=== PATIENT | female | born 1950 | race Caucasian/White ===

== ENCOUNTER 2021-06-24 06:15 | Day surgery (SDC) | payer MEDICARE, BC, SELFPAY ==
[2021-06-17 13:06] VITALS: BMI 24.8
--- NOTE | 2021-06-23 14:00 | HO.ANESPROP2 ---
Documented by User: Kaylin Perdue NP 06/23/21 14:01 HPI - Anesthesia Eval Consult details Narrative: 70yo F for Colonoscopy [facility] Past Medical History Medical History (Updated 06/17/21 @ 13:02 by Roxanne Osei RN) Anxiety Urinary incontinence Surgical History Surgical History (Updated 06/17/21 @ 13:02 by Roxanne Osei RN) H/O colonoscopy Hx of eye surgery Hx of sinus surgery Social History Social History Patient Tobacco Use Status: Tobacco use Unknown Advance Directives: No Advance Directives Information Provided: Yes Advance Directives on File: No Meds Allergies Allergy/AdvReac Type Severity Reaction Status Date / Time grass pollen Allergy Mild Rash Verified 06/17/21 12:39 Penicillins Allergy Mild Rash Verified 06/17/21 12:39 Home Medications Medication Instructions Recorded Confirmed Last Taken Type Calcium + D 1 tab PO DAILY 06/17/21 06/17/21 Unknown History Exam Exam Date and Time: June 23, 2021 1400 Height,Weight and Vital Signs: Height 5 ft 2.5 in Weight 62.596 kg Assessment and Plan Assessment Anesthesia Assessment: Chart Reviewed Documented by User: Luis Alberto Clemente MD 06/24/21 09:06 HPI - Anesthesia Eval Consult details Narrative: 70yo F for Colonoscopy h/o vertigo [facility] Past Medical History Medical History (Updated 06/17/21 @ 13:02 by Roxanne Osei RN) Anxiety Urinary incontinence Family History Family history of problems with anesthesia: No Surgical History Surgical History (Updated 06/17/21 @ 13:02 by Roxanne Osei RN) H/O colonoscopy Hx of eye surgery Hx of sinus surgery History of Problems with Anesthesia: No Social History Social History Patient Tobacco Use Status: Tobacco use Unknown Advance Directives: No Advance Directives Information Provided: Yes Advance Directives on File: No Meds Allergies Allergy/AdvReac Type Severity Reaction Status Date / Time grass pollen Allergy Mild Rash Verified 06/17/21 12:39 Penicillins Allergy Mild Rash Verified 06/17/21 12:39 Home Medications Medication Instructions Recorded Confirmed Last Taken Type Calcium + D 1 tab PO DAILY 06/17/21 06/17/21 Unknown History Exam Airway Mallampati Class: II TM Dist: >3cm Neck ROM: Full Loose/Missing/Broken Teeth: Yes (Crowns , implants ) Heart: rrr Lungs: bl breath sounds Assessment and Plan Assessment Anesthesia Assessment: Anesthesia Plan Discussed Final Anesthetic Review Family History of Problems with Anesthesia: No History of Problems with Anesthesia: No NPO: Yes ASA Class: II Final Preanesthetic Review: Meds/Allgs Chart Reviewed and Anes Risks/Benef Reviewed Patient Risk: Intermediate Procedure Risk: Intermediate Anesthetic Plan Anesthetic Plan: MAC: Disposition: Standard PACU
[2021-06-24 06:41] VITALS: BP 140/76; PULSE 98; RESP 18; TEMP 36.3; O2SAT 98
[2021-06-24] MEDS: Lactated Ringers 1,000 ML 100 ML IVCONT (06:53)
[2021-06-24 08:34] VITALS: BP 92/52; PULSE 76; RESP 16; TEMP 36.9; O2SAT 98
--- NOTE | 2021-06-24 08:34 | PM.OP ---
Brief Operative Note Date of Service: 06/24/21 Pre-op diagnosis: Screening Post-op diagnosis: other (Rectal polyp) Procedure: Colonoscopy to the cecum and TI with bx/removal of polyp Surgeon: Shoaib Villa Anesthesia: MAC Was an Stump Shooter used for this Procedure?: No Estimated blood loss (mL): 2.0 Pathology: other (A. Distal rectal polyp) Condition: stable Disposition: PACU
[2021-06-24 08:49] VITALS: BP 107/62; PULSE 76; RESP 18; TEMP 36.6; O2SAT 99
--- NOTE | 2021-06-24 09:34 | OP_ITS ---
SURGEON: Shoaib Villa MD INDICATIONS: The patient presents for evaluation of colorectal cancer screening and personal history of tubular adenoma of the colon. Full consent has been obtained from her for this, including risks of bleeding and perforation. PREOPERATIVE DIAGNOSIS: Colorectal cancer screening and personal history of tubular adenoma of the colon. POSTOPERATIVE DIAGNOSIS: PROCEDURE PERFORMED: Colonoscopy to the cecum and terminal ileum with biopsy and removal of polyp. ESTIMATED BLOOD LOSS: COMPLICATIONS: ANESTHESIA: Preop medication used, monitored anesthesia care. ASSISTANTS: SPECIMENS: POSTOPERATIVE DIAGNOSES: Colorectal cancer screening and personal history of tubular adenoma of the colon, rectal polyp, diverticulosis, and internal and external hemorrhoids. DESCRIPTION OF PROCEDURE: The patient was placed in the left lateral decubitus position the digital rectal exam revealed some external hemorrhoidal tissue. The Olympus video pediatric colonoscope was entered into the rectum and advanced easily to the cecum. Once in the cecum, I did identify normal-appearing cecal pouch with appendiceal orifice and a normal-appearing ileocecal valve. There was transillumination of light deep in the right lower quadrant. The terminal ileum was cannulated and appeared normal. The scope was withdrawn back in the colon. The entire cecum and ileocecal valve appeared normal. The scope was slowly withdrawn assessing all mucosal surfaces carefully. Preparation was excellent. There was a moderate amount of sigmoid diverticulosis. I did not visualize any sign of colitis nor angiodysplasia. The only polyp I visualized was in the very distal rectum in the forward viewing position. This was approximately 4 mm in diameter and was biopsied and completely removed with the cold biopsy forceps. The scope was retroflexed visualizing some internal hemorrhoids as well. The scope was straightened and withdrawn from the patient. She tolerated the procedure well and she returned to recovery area in stable condition. IMPRESSION: 1. Small distal rectal polyp, status post biopsy and removal. 2. Diverticulosis. 3. Internal and external hemorrhoids. PLAN: The results of biopsy will be checked. I would recommend a repeat colonoscopy in 5 years for further screening and surveillance. She will otherwise see me on a p.r.n. basis. MD MIKE Kearney/MARIANA / [phone]
== END 2021-06-24 09:41 | disposition home or self-care (01) ==
PROVIDERS: PCP Registered Nurse; Visit Provider Internal Medicine
PROC: 0DJD8ZZ Inspection of Lower Intestinal Tract, Via Natural or Artificial Opening Endoscopic (ICD-10-PCS; CPT 45378; principal; 2021-06-24 07:30)
DX: Z12.11 Encounter for screening for malignant neoplasm of colon (principal); Z86.010 Personal history of colon polyps; K62.1 Rectal polyp; K57.30 Diverticulosis of large intestine without perforation or abscess without bleeding; K64.8 Other hemorrhoids; K64.4 Residual hemorrhoidal skin tags
CPT/HCPCS: 45380; 88305; J2370

== ENCOUNTER 2023-02-25 08:29 | Outpatient (AMB) | payer MEDICARE, BC, SELFPAY ==
[2023-02-25 08:50] VITALS: BP 152/90; PULSE 112; TEMP 36.7; O2SAT 97; BMI 24.3
--- NOTE | 2023-02-25 08:50 | AM.OFFWIN_ITS ---
Intake Vital Signs 02/25/23 08:50 Height 5 ft 3 in Weight 137 lb 6 oz BMI 24.3 BP 152/90 H Blood Pressure Location Lt brachial Position Sitting Pulse 112 H Pulse Source Pulse Oximeter Temp 98.0 F Temp Source Temporal Artery Scan Pulse Oximetry (%) 97 Oxygen Delivery Method Room Air Intake Visit Reasons: [employer] POST COVID still not better [id number] Intake Note: pt is here today for post covid Patient Tobacco Use Status: Never used Tobacco Allergies grass pollen Allergy (Mild, Verified 02/25/23 09:40) Rash Penicillins Allergy (Mild, Verified 02/25/23 09:40) Rash Medication List - Last Reconciled 02/25/23 by Steven Leger MD [Calcium + D 1 tab PO DAILY] Do you need a note to return to daycare/school/sports/work: No HPI [employer] POST COVID still not better [id number] HPI Details 72-year-old female presents to the [facility] for a sick visit. Patient was diagnosed with COVID a week ago. Continues to feel tired with cough. No fevers or shortness of breath. No nausea or vomiting. [facility] Medical History (Updated 06/17/21 @ 13:02 by Roxanne Osei RN) Urinary incontinence Anxiety Surgical History (Updated 06/17/21 @ 13:02 by Roxanne Osei RN) Hx of eye surgery Hx of sinus surgery H/O colonoscopy Social History Patient Tobacco Use Status: Never used Tobacco Physical Exam Vital Signs: Last Vital Signs Temp 98.0 F 02/25/23 08:50 Pulse 112 H 02/25/23 08:50 BP 152/90 H 02/25/23 08:50 Pulse Ox 97 02/25/23 08:50 Oxygen Delivery Method Room Air 02/25/23 08:50 BMI result Body Mass Index 24.3 Const General: cooperative and healthy appearing Nutritional Appearance: well nourished Orientation/consciousness: patient oriented x3 Limitations: no limitations HEENT Head: Yes normal to inspection Eyes General: appearance normal, both eyes and all related structures Neck Neck: Yes normal visual inspection Chest Chest palpation & inspection: normal palpation of entire chest wall Resp Effort & Inspection: normal respiratory effort Neuro General: patient oriented x3 Assessment & Plan Assessment & Plan (1) Acute bronchitis: Code(s): J20.9 - Acute bronchitis, unspecified Plan Azithromycin added to the regimen. Chest x-ray images were reviewed by me. No infiltrate seen. Orders: Orders XR chest 2V Today R05.9 - Cough, unspecified Coding Level of Care Code New Pt Level 4 (11709) Diagnoses Acute bronchitis J20.9
== END 2023-02-25 09:46 | disposition home or self-care (01) ==
PROVIDERS: PCP Registered Nurse; Visit Provider Internal Medicine
DX: J20.9 Acute bronchitis, unspecified (principal)
CPT/HCPCS: 99204

== ENCOUNTER 2023-02-25 09:24 | Outpatient (REF) | payer MEDICARE, BC, SELFPAY ==
--- NOTE | ~2023-02-25 | XR_ITS ---
EXAMINATION: XR CHEST CLINICAL INFORMATION: Cough COMPARISON: None available. TECHNIQUE: 2 views of the chest were obtained. FINDINGS: Heart and mediastinum within normal limits. Lungs are hyper aerated mild biapical pleural thickening. No consolidations, failure or effusions. Bony structures are intact. XR/XR chest 2V IMPRESSION: No acute cardiopulmonary disease.
== END 2023-02-25 09:25 | disposition home or self-care (01) ==
LOC: HO.HMGCX 09:24
PROVIDERS: PCP Registered Nurse; Visit Provider Internal Medicine
DX: R05.9 Cough, unspecified (principal)
CPT/HCPCS: 71046

== ENCOUNTER 2023-06-10 13:17 | Outpatient (AMB) | payer MEDICARE, BC, SELFPAY ==
[2023-06-10 13:17] VITALS: BP 140/78; PULSE 102; TEMP 36.2; O2SAT 99; BMI 24.8
--- NOTE | 2023-06-10 13:17 | MHC.OFFWIV ---
Intake Vital Signs 06/10/23 13:17 Height 5 ft 3 in Weight 140 lb BMI 24.8 BP 140/78 H Blood Pressure Location Lt brachial Position Sitting Pulse 102 H Pulse Source Pulse Oximeter Temp 97.2 F Temp Source Temporal Artery Scan Pulse Oximetry (%) 99 Oxygen Delivery Method Room Air Intake Visit Reasons: EP rash on body Intake Note: pt is here today for rash on body started 2 weeks ago Patient Tobacco Use Status: Never used Tobacco Allergies grass pollen Allergy (Mild, Verified 06/10/23 13:22) Rash Penicillins Allergy (Mild, Verified 06/10/23 13:22) Rash Do you need a note to return to daycare/school/sports/work: No HPI HPI Comments History of Present Illness Details This is a 72-year-old female presenting to the office complaining of intermittent rash/pruritus for the past several weeks. She states she gets an occasional red rash all over her body on her chest, back, neck, trunk, and arms. She states that this rash is pruritic when it appears. She denies any exposures to new creams, lotions, detergents, soaps, or foods. She states that her is currently going through cancer treatment and she believes her rash may be related to stress/anxiety. She denies any chest tightness, wheezing, throat swelling, or trouble swallowing. She denies any fevers or chills. [facility] Medical History (Updated 06/17/21 @ 13:02 by Roxanne Osei RN) Urinary incontinence Anxiety Surgical History (Updated 06/17/21 @ 13:02 by Roxanne Osei RN) Hx of eye surgery Hx of sinus surgery H/O colonoscopy Social History Patient Tobacco Use Status: Never used Tobacco Review of Systems Const All systems reviewed & are unremarkable except as noted in HPI and below Reports no additional complaints Eyes Reports no additional complaints ENT Reports no additional complaints Card Reports no additional complaints Resp Reports no additional complaints GI Reports no additional complaints Reports no additional complaints Musc Reports no additional complaints Skin/Breast Reports system reviewed and no additional complaints, except as documented Neuro Reports no additional complaints Psych Reports no additional complaints Endo Reports no additional complaints Amari/Lymph Reports no additional complaints Aller/Immun Reports no additional complaints Physical Exam Const Other: Vital signs reviewed. Constitutional: Non-toxic appearing. No acute distress. Well-developed and well-nourished. HEENT: Normocephalic and atraumatic. Skin: Warm and dry. No rashes or lesions noted. Neck: Full and painless range of motion. No cervical lymphadenopathy. Cardio: Regular rate and rhythm. No murmurs, gallops, or rubs. No lower extremity edema. No JVD. Pulmonary: No respiratory distress. No accessory muscle usage. Gastrointestinal: Soft, nontender, and nondistended in all 4 quadrants. Musculoskeletal: Normal range of motion in joints throughout the body. No deformity or other signs of injury. Neuro: Alert and oriented x4. Cranial nerves 2-12 grossly intact. No focal deficits appreciated. Psych: Normal mood and affect. Assessment & Plan Assessment & Plan (1) Dermatitis: Code(s): L30.9 - Dermatitis, unspecified Plan: This is a 72-year-old female who presented to the walk-in clinic complaining of intermittent pruritic rash all over her body for the past several weeks. On physical examination, the patient has no rash on her chest, neck, back, trunk, or upper extremities. I explained to the patient that it is difficult for me to diagnose this rash since it is not currently present at this time. Patient was reassured that her symptoms do not sound like shingles as the rash is migratory and crosses the midline. Patient could possibly have irritant/contact dermatitis with unknown trigger versus cholinergic urticaria in the setting of increased stress/anxiety. I sent a prescription for triamcinolone cream 4 times daily as needed for rash as well as p.o. hydroxyzine 50 mg 3 times daily as needed for itching, which will also help with anxiety. Patient was extremely appreciative and felt reassured after our visit. She was advised to follow-up here or proceed to the emergency room if she were to develop any persistent or worsening symptoms or if she were to develop any signs of anaphylaxis including shortness of breath, wheezing, swelling, or trouble swallowing. Patient verbalized her understanding and she is in agreement with the plan. Medications: New hydroxyzine HCl 50 mg PO TID PRN 21 tabs 0RF itching triamcinolone acetonide 0.1% 1 appl topical QID PRN 30 grams 0RF rash Coding Level of Care Code Est Pt Level 3 (34773) Diagnoses Dermatitis L30.9
== END 2023-06-10 16:09 | disposition home or self-care (01) ==
PROVIDERS: PCP Registered Nurse; Visit Provider Physician Assistant Medical
DX: L30.9 Dermatitis, unspecified (principal)
CPT/HCPCS: 99213

== ENCOUNTER 2024-09-21 14:32 | Outpatient (AMB) | payer MEDICARE, BC, SELFPAY ==
--- OUTSIDE RECORDS SUMMARY | 2024-09-21 14:34 | XMS_ITS | Patient Health Record ---
Author Organization [facility] Address [address] [place] [address] Care Team Providers Care Rod Piler Name Role Phone Edita Garza Primary Care Provider Shoaib Escalera Unavailable [phone] Allergies Allergen (clinical drug ingredient) Drug/Non Drug Allergy documented on EMR Reaction Allergy Type Onset Date Status Penicillin Unknown Drug Allergy Active Reason For Referral No Information Medications Medication SIG (Take, Route, Frequency, Duration) Notes Start Date End Date Status Calcium + D Active Immunizations Vaccine Route Administration Date Status Comme nts Flu vaccine no Preserv 3 and > Unknown 03/24/2015 Admin istered Influenza Unknown 01/07/2021 Administered Problems Problem Type SNOMED Code ICD Code Onset Dates Problem Status W/U Status Risk Notes Problem [id number] Encounter for screening for malignant neoplasm of colon (Z12.11) Active confirmed Problem 103463256 History of adenomatous polyp of colon (Z86.010) Active confirmed Problem Screening for malignant neoplasm of rectum (194567835) Encounter for screening for malignant neoplasm of rectum (Z12.12) Active confirmed Problem 81891478 Preprocedural examination (Z01.818) Active confirmed Problem Diverticulosis of colon (806620266) Diverticulosis of colon (K57.30) Active confirmed Plan Of Treatment Pending Test Test Name Order Date Pathology 06/24/2021 Future Test Test Name Order Date COLONOSCOPY 11/18/2015 COLONOSCOPY 05/19/2021 Insurance Providers Payer Name Payer Address Payer Phone Subscriber Number Group Number Insured Name Patient Relationship to Insured Coverage Start Date Coverage End Date MEDICARE OF [place] [address] [place] [id number] TERESO SEGUNDO Self - patient is the insured [facility] [address] [place], [place] [id number] TERESO SEGUNDO Self - patient is the insured Medical (General) History Medical History History ICD Code Screening colonoscopy in 200 0 with removal of a tubular adenoma and a 2cm tubulovillous adenoma--she had negative followup colonoscopies in 2002 and 2005, and a colonoscopy in September of 2010 with removal of a small tubular adenoma, and the finding of a small nonbleeding cecal angiodysplasia, moderate sigmoid diverticulosis, and internal hemorrhoids Denies RI,DM,CVA,Lung disease,renal dise ase Anxiety Urinary incontinence Colonoscopy in 01/2016 with removal of sm all tubular adenomas Surgical History Surgery Date(Month/Year) Sinus surgery Left eye retina and cataract [phone]
[2024-09-21 15:00] VITALS: BP 112/70; PULSE 83; O2SAT 98
--- NOTE | 2024-09-21 15:00 | AM.OFFWIN_ITS ---
Intake Vital Signs 09/21/24 15:00 Weight 139 lb BP 112/70 Blood Pressure Location Rt brachial Position Sitting Pulse 83 Pulse Source Pulse Oximeter Pulse Oximetry (%) 98 Oxygen Delivery Method Room Air Intake Visit Reasons: EP tick bite on leg Intake Note: Patient here for tick bite on right leg that she noticed this morning. Patient Tobacco Use Status: Never used Tobacco Allergies grass pollen Allergy (Mild, Verified 09/21/24 15:03) Rash Penicillins Allergy (Mild, Verified 09/21/24 15:03) Rash Do you need a note to return to daycare/school/sports/work: No HPI HPI Comments History of Present Illness Details History of Present Illness - The patient is a 73-year-old female pr esenting with concerns related to a tick bite. - Discovery of the tick occurred in the morning bath routine today, revealing small size and broken skin. Tick was not engorged. - Previous gardening activities yesterda y could have been the exposure point; protective clothing was worn. - No systemic symptoms like fever, joint pain, or erythema migrans rash were present. Physical Exam General: Cooperative, healthy appearing, comfortable, no acute distress and well developed Orientation: Patient oriented x3 Limitations: No limitations Head: Normal to inspection Ears: Hearing grossly normal bilaterally Nose: Normal External nose present Face and sinus: Normal facial exam Eyes: Appearance normal, both eyes and all related structures Neck: Normal visual inspection and Yes full ROM Respiratory: Normal respiratory effort and able to speak in complete sentences. Skin: No rashes or lesions noted, 0.5cm area of erythrma on inner right thigh, no warmth or drainage Neuro: Patient oriented x3 Extremities: Normal to inspection PFSH Medical History (Updated 09/21/24 @ 15:16 by Sandra Gordon PA-C) Urinary incontinence Anxiety Surgical History (Updated 06/17/21 @ 13:02 by Roxanne Osei RN) Hx of eye surgery Hx of sinus surgery H/O colonoscopy Social History Patient Tobacco Use Status: Never used Tobacco Review of Systems Const All systems reviewed & are unremarkable except as noted in HPI and below Physical Exam Vital Signs: Last Vital Signs Pulse 83 09/21/24 15:00 BP 112/70 09/21/24 15:00 Pulse Ox 98 09/21/24 15:00 Oxygen Delivery Method Room Air 09/21/24 15:00 Assessment & Plan Assessment & Plan (1) Tick bite of right thigh: Code(s): S70.361A - Insect bite (nonvenomous), right thigh, initial encounter; W57.XXXA - Bitten or stung by nonvenomous insect and other nonvenomous arthropods, initial encounter Qualifiers: Encounter type: initial encounter Qualified Code(s): S70.361A - Insect bite (nonvenomous), right thigh, initial encounter; W57.XXXA - Bitten or stung by nonvenomous insect and other nonvenomous arthropods, initial encounter Plan: Plan The patient was evaluated for a tick bite with potential Lyme disease risk. A prophylactic single dose of doxycycline was prescribed to prevent Lyme transmission, given the tick's short attachment time. Instructions were clarified regarding medication intake with food and avoidance of dairy. The patient was advised to observe for any ongoing symptoms and return if symptoms like fever, EM rash, or joint pain develop. Patient was informed and verbally consented to the use of an ambient scribe for clinic note documentation during this visit. Medications: New doxycycline hyclate 200 mg (2 x 100 mg) PO ONCE 2 tabs 0RF tick bite ppx Coding Level of Care Code New Pt Level 3 (18570) Diagnoses Tick bite of right thigh, initial encounter S70.361A; W57.XXXA Encounter type: initial encounter
== END 2024-09-21 15:26 | disposition home or self-care (01) ==
PROVIDERS: PCP Registered Nurse; Visit Provider Physician Assistant
DX: S70.361A Insect bite (nonvenomous), right thigh, initial encounter (principal); W57.XXXA Bitten or stung by nonvenomous insect and other nonvenomous arthropods, initial encounter

== ENCOUNTER → 2024-09-21 14:32 | Outpatient (BNVA) | payer MEDICARE, BC, SELFPAY | PROVIDERS: PCP Registered Nurse; Visit Provider Physician Assistant | DX: S70.361A Insect bite (nonvenomous), right thigh, initial encounter (principal); W57.XXXA Bitten or stung by nonvenomous insect and other nonvenomous arthropods, initial encounter | CPT/HCPCS: 99202 ==

== ENCOUNTER 2025-02-27 12:56 | Outpatient (AMB) | payer MEDICARE, BC, SELFPAY ==
--- NOTE | 2025-02-27 13:21 | MHC.OFFWIV ---
Intake Vital Signs 02/27/25 13:34 Height 5 ft 2.5 in Weight 136 lb 6 oz BMI 24.5 BP 132/66 Blood Pressure Location Lt brachial Position Sitting Pulse 110 H Pulse Source Pulse Oximeter Temp 98.4 F Temp Source Oral Pulse Oximetry (%) 98 Oxygen Delivery Method Room Air Intake Visit Reasons: EP-sore throat, ears issues, -7886 Intake Note: Patient presents with sore throat, left ear pressure, head/sinus congestion, chills x2 days Patient Tobacco Use Status: Never used Tobacco Allergies grass pollen Allergy (Mild, Verified 02/27/25 13:23) Rash Penicillins Allergy (Mild, Verified 02/27/25 13:23) Rash Do you need a note to return to daycare/school/sports/work: No HPI HPI Comments History of Present Illness Details History - The patient is a 74-year-old female presenting with a sore throat and associated symptoms. - The sore throat began two days ago and was the initial symptom. - The patient reports ear discomfort and nasal congestion, contributing to the sensation of fullness in the head. - Coughing is present, attributed to throat irritation and mucus production. - No fever, headache, vomiting, or diarrhea reported. - A rapid strep test was conducted and returned negative. - The patient received a flu vaccine in August 2024. - She has no sick contacts. - She denies fever, chills, CP, SOB, abd pain, or n/v/d. Physical Exam General: Cooperative, healthy appearing, comfortable and no acute distress Orientation/consciousness: Patient oriented x3 Limitations: No limitations Head: Normal to inspection Ears: Hearing grossly normal bilaterally, external ears normal and TM's normal bilaterally. Nose: Normal external nose present, normal nares present, and no nasal discharge present. Face and sinus: Sinuses nontender to palpation. Mouth: Normal oral and palatal mucosa present and moist mucous membranes noted. Uvula is midline. Pharynx is erythematous with no exudates. Throat: Tonsils normal. Uvula is midline. Posterior oropharynx with erythema and no exudates. Eyes: Appearance normal, both eyes and all related structures Neck: Normal visual inspection, full ROM. No lymphadenopathy noted. Respiratory: Clear to auscultation bilaterally. Normal respiratory effort, able to speak in complete sentences. No respiratory distress, not tachypneic, no tripod positioning and no use of accessory muscles. Cardiovascular: Regular rate and rhythm. Normal S1 and S2 Skin: No rashes or lesions noted Patient was informed and verbally consented to the use of an ambient scribe for clinic note documentation during this visit [facility] Medical History (Updated 09/21/24 @ 15:16 by Sandra Gordon PA-C) Urinary incontinence Anxiety Surgical History (Updated 06/17/21 @ 13:02 by Roxanne Osei RN) Hx of eye surgery Hx of sinus surgery H/O colonoscopy Social History Patient Tobacco Use Status: Never used Tobacco Review of Systems Const All systems reviewed & are unremarkable except as noted in HPI and below Physical Exam Vital Signs: Last Vital Signs Temp 98.4 F 02/27/25 13:34 Pulse 110 H 02/27/25 13:34 BP 132/66 02/27/25 13:34 Pulse Ox 98 02/27/25 13:34 Oxygen Delivery Method Room Air 02/27/25 13:34 BMI result Body Mass Index 24.5 Assessment & Plan Assessment & Plan (1) Sore throat: Code(s): J02.9 - Acute pharyngitis, unspecified Plan Most likely strep vs viral illness vs covid vs flu vs RSV rapid strep was negative plan - will order a resp panel - tylenol or motrin as needed - salt water gargles and lots of fluids - diet as tolerated - will call with the results - follow up with PCP Orders: Orders AMB Rapid Strep Screen Today Z13.9 - Encounter for screening, unspecified Resp Pathogen Panel - [facility] Today J06.9 - Acute upper respiratory infection, unspecified Coding Level of Care Code Est Pt Level 3 (65247) Diagnoses Sore throat J02.9
[2025-02-27 13:34] VITALS: BP 132/66; PULSE 110; TEMP 36.9; O2SAT 98; BMI 24.5
== END 2025-02-27 14:11 | disposition home or self-care (01) ==
PROVIDERS: PCP Registered Nurse; Visit Provider Physician Assistant Medical
DX: Z13.9 Encounter for screening, unspecified (principal); J02.9 Acute pharyngitis, unspecified

== ENCOUNTER 2025-02-27 12:56 | Outpatient (REF) | payer MEDICARE, BC, SELFPAY ==
--- OUTSIDE RECORDS SUMMARY | 2025-02-27 22:29 | XMS_ITS | Encounter Summary ---
Author Organization [facility] Address [address] [place] [address] Phone Care Team Providers Care Vocal Music Instructor Name Role Phone Davdi eLzama MD Unavailable [phone] Edita Garza [facility] Primary Care Provider Hair Bowser MD Unavailable [phone] Lm Suarez MD Unavailable [phone] Garrett Funez MD Primary Care Provider [phone] Unknown, Unknown Primary Care Provider Hair Summers MD Unavailable [phone] Glenis Gloria [facility] Primary Care Provid er David Alford DO Unavailable Nilda Oh MD Unavailable Encounter Details Date Type Department Care Team (Latest Contact Info) Description 03/05/2021 Transcribe Orders Virtual Department [address] [place] [address] Lm Suarez MD [address] [place], [place] [phone] [email or web address] Cyst of kidney, acquired (Primary Dx) Social History Tobacco Use Types Packs/Day Years Used Date Smoking Tobacco: Never Smokeless Tobacco: Never Alcohol Use Standard Drinks/Week Comments Yes 0 (1 standard drink = 0.6 oz pur e alcohol) once every few months Comments No Sex and Gender Information Value Date Recorded Sex Assigned at Female 06/03/2019 9:50 AM EST Legal Sex Female 10:46 AM EDT Gender Identity Female 06/03/2019 9:50 AM EST Sexual Orientation Straight 06/03/2019 9: 50 AM EST documented as of this encounter Plan of Treatment Upcoming Encounters Date Type Department Care Team (Late st Contact Info) Description 06/03/2025 8:30 AM EST Office Visit [facility] [address] [place] [address] [place] [address] David Alford DO [address] [place] [address] 08/16/2025 10:30 AM EDT Office Visit [facility] [address] [place] [address] [place] [address] Glenis Gloria, PHILL [address] [facility], 2nd [place] [address] [email or web address] documented as of this encounter Results * US Kidneys (04/14/2021 8:41 AM EST) Anatomical Region Laterality Modality Abdomen, Kidney Ultrasound 04/14/2021 8:45 AM EST Impressions 04/14/2021 9:39 AM EST Chronic bilateral renal parapelvic cysts without significant interval change. No acute findings. Narrative 04/14/2021 9:39 AM EST COMPARISON: 02/11/2020. RENAL ULTRASOUND FINDINGS: Right Kidney: measures 9 x 4 cm. No hydronephrosis, masses or calculi. Chronic simple appearing parapelvic cysts-largest 1.2 cm midpole. Cortical echogenicity and thickness are normal. No perinephric fluid collections. Left Kidney: measures 10 x 4 cm. No hydronephrosis, masses or calculi. Chronic simple appearing parapelvic cysts-largest 1.8 cm midpole. Cortical echogenicity and thickness are normal. No perinephric fluid collections. Procedure Note Jordy Enriquez MD - 04/14/2021 COMPARISON: 02/11/2020. RENAL ULTRASOUND FINDINGS: Right Kidney: measures 9 x 4 cm. No hydronephrosis, masses or calculi.Chronic simple appearing parapelvic cysts-largest 1.2 cm midpole. Corticalechogenicity and thickness are normal. No perinephric fluidcollections. Left Kidney: measures 10 x 4 cm. No hydronephrosis, masses or calculi.Chronic simple appearing parapelvic cysts-largest 1.8 cm midpole. Corticalechogenicity and thickness are normal. No perinephric fluidcollections. IMPRESSION: Chronic bilateral renal parapelvic cysts without significant intervalchange. No acute findings. us Lm Suarez MD [facility] RENAL Final Result documented in this encounter Visit Diagnoses Diagnosis Cyst of kidney, acquired- Primary Acquired cyst of kidney Cyst of kidney, acquired Acquired cyst of kidney documented in this encounter Additional Health Concerns Assessment Noted Time PHQ-2 Depression Total Score: 0 12/03/19 9:13 AM EDT documented as of this encounter Care Teams Vocal Music Instructor Relationship Specialty Start Date End Date Edita Garza CNP [address] [place] [address] PCP - General Internal Medicine 06/03/19 10/27/22 Garrett Funez MD [address] [place] [address] PCP - General Internal Medicine 10/28/22 04/04/23 Unknown, Miquel, PCP - General 04/05/23 08/30/23 Glenis Gloria CNP [address] [place] [address], 2nd [place] [address] PCP - General Family Medicine 08/31/23 David Lezama MD [address] [place] [address] Ophthalmology 04/17/19 Hair Bowser MD [address] [place] [address] [email or web address] Insurance Assigned Provider 08/15/19 04/04/23 Lm Suarez MD [address] [place] [address] [email or web address] Urology 03/04/20 Hair Bowser MD [address] [place] [address] [email or web address] Insurance Assigned Provider 08/15/19 05/14/23 David Alford DO [address] [place] [address] Energy And Conservation Technician Endocrinology 08/15/24 Nilda Oh MD [address] [place] [address] [email or web address] Obstetrics and Gynecology 08/15/24 documented as of this encounter Additional Source Comments The information contained in this document represents components of the legal health record. It is not the complete legal health record.[facility]
--- OUTSIDE RECORDS SUMMARY | 2025-02-27 22:30 | XMS_ITS | Encounter Summary ---
Author Organization [facility] Address [address] [place] [address] Phone Care Team Providers Care Pre Billing Clinician Name Role Phone David Lezama MD Unavailable Lm Suarez MD Unavailable [phone] Glenis Gloria [facility] Primary Care Provid er David Alford DO Unavailable Nilda Oh MD Unavailable Encounter Details Date Type Department Care Team (Late st Contact Info) Description 01/08/2025 Procedure Pass [facility], Ct Scan - [address] [address] Social History Tobacco Use Types Packs/Day Years Used Date Smoking Tobacco: Never Smokeless Tobacco: Never Alcohol Use Standard Drinks/Week Comments Not Currently 0 (1 standard drink = 0.6 oz pur e alcohol) 1-2 drinks, monthly or less Education Answer Date Recorded Are you interested in more education? Not on michelle e 09/03/2022 Are you concerned about learning? Not on file 09/03/2022 No 09/03/2022 No 09/03/2022 Food Answer Date Recorded Within the past 6 months we worried whether our food would run out before we got money to buy more. Never True 01/08/2025 Within the past 6 months the food we bought just didn't last and we didn't have enough money to get more. Never True 09/02/202 5 Residential Stability Answer Date Recor ded What is your housing situation today? I have [place] 01/08/2025 How many times have you move d in the past 12 months? Zero (I did not move) 01/08/2025 Paying for Meds Answer Date Recorded Do you have trouble paying for medicines? No 01/08/2025 Paying Utility Bills Answer Date Record ed Do you have trouble paying your heating or elect ricity bill? No 01/08/2025 Transportation Answer Date Recorded Has the lack of transportati on kept you from medical appointments or from getting medications? No 01/08/2025 Digital Access Answer Date Recorded No 01/08/2025 Yes 01/08/2025 Do you have reliable internet access at home? Ye s 01/08/2025 Do you have a device (e.g., phone, tablet, computer) with a working camera? Yes 01/08/2025 Intimate Partner Violence Answer Date R ecorded Are you denied basic needs s uch as food, clothing, or medical care? No 01/08/2025 In the past 12 months have y ou been in a relationship with a person who hurts, threatens, or tries to control you? No 01/08/2025 Are you denied basic needs s uch as food, clothing, or medical care? No 01/08/2025 In the past 12 months have y ou been in a relationship with a person who hurts, threatens, or tries to control you? No 01/08/2025 Comments No Sex and Gender Information Value Date Recorded Sex Assigned at Female 06/03/2019 9:50 AM EST Legal Sex Female 10:46 AM EDT Gender Identity Female 06/03/2019 9:50 AM EST Sexual Orientation Straight 06/03/2019 9: 50 AM EST documented as of this encounter Functional Status * Calculated C-SSRS Risk Score (Lifetime/Recent) Answer Date of Assessment Author No Risk Indicated 01/08/2025 1:04 PM SYDNEET Flaquita Galeana RN * [place] Suicide Severity Rating Scale (Screener/Recent Self-Report) Question Answer Date of Assessment Author 1. Wish to be (Past 1 Month) No 01/08/2025 1:04 PM Patrick Mccarthy RN 2. Non-Specific Active Suicidal Thoughts (Past 1 Month) No 01/08/2025 1:04 PM EDT Patrick Law RN 6. Suicidal Behavior (Lifetime) No 01/08/2025 1:04 PM EDT Patrick Law RN documented as of this encounter Plan of Treatment Upcoming Encounters Date Type Department Care Team (Late st Contact Info) Description 06/03/2025 8:30 AM EST Office Visit [facility] [address] [place] [address] David Alford DO [address] [place] [address] 08/16/2025 10:30 AM EDT [facility] [address] [place] [address] [place] [address] Glenis Gloria CNP [address] [place] [address] documented as of this encounter Visit Diagnoses Not on filedocumented in this encounter Additional Health Concerns Assessment Noted Time PHQ-2 Depression Total Score: 0 08/16/19 25 8:55 AM EDT documented as of this encounter Care Teams Pre Billing Clinician Relationship Specialty Start Date End Date Glenis Gloria CNP [address] [place] [address] PCP - General Family Medicine 08/31/23 David Lezama MD [address] [place] [address] Ophthalmology 04/17/19 Lm Suarez MD [address] [place] [address], [address] [place] [address] Urology 03/04/20 David Alford DO [address] [place] [address] [email or web address] Oil Treater Endocrinology 08/15/24 Nilda Oh MD [address] [place] [address], [address] [place] [address] [email or web address] Obstetrics and Gynecology 08/15/24 documented as of this encounter Additional Source Comments The information contained in this document represents components of the legal health record. It is not the complete legal health record.[facility]
--- OUTSIDE RECORDS SUMMARY | 2025-02-27 22:30 | XMS_ITS | Encounter Summary ---
Author Organization [facility] Address [address] [place] [address] Phone Care Team Providers Care Mixed Livestock Farm Worker Name Role Phone Hair Bowser MD Unavailable Edita Garza [facility] Primary Care Provider David Lezama MD Unavailable Edita Garza [facility] Primary Care Provider Hair Bowser MD Unavailable [phone] Lm Suarez MD Unavailable [phone] Garrett Funez MD Primary Care Provider Unknown, Unknown Primary Care Provider Hair Summers MD Unavailable Glenis Gloria [facility] Primary Care Provid er David Alford DO Unavailable Nilda Oh MD Unavailable Encounter Details Date Type Department Care Team (Latest Contact Info) Description 10/03/2018 Transcribe Orders Virtual Department [address] [place] [address] Tayler Ramos [place] [address] [phone] [email or web address] Cyst of kidney, acquired (Primary Dx) Social History Tobacco Use Types Packs/Day Years Used Date Smoking Tobacco: Never Smokeless Tobacco: Never Alcohol Use Standard Drinks/Week Comments Yes 1 (1 standard drink = 0.6 oz pur e alcohol) once per month Comments Unknown Sex and Gender Information Value Date Recorded [...] AM EST Office Visit [facility] [address] [place] [address] [place] [address] David Alford DO [address] [place] [address] 08/16/2025 10:30 AM EDT Office Visit [facility] [address] [place] [address] [place] [address] Glenis Gloria, [facility] [address] [facility], 2nd [place] [address] [email or web address] documented as of this encounter Results * US Kidneys (12/25/2018 10:05 AM EDT) Anatomical Region Laterality Modality Abdomen, Kidney Ultrasound 12/25/2018 4:28 PM EDT Impressions 12/25/2018 4:31 PM EDT No renal calculi. Normal renal size and cortical echogenicity. Several LEFT renal parapelvic cysts, unchanged compared with the prior study. POS - [id number] Narrative 12/25/2018 4:31 PM EDT EXAM: US KIDNEYS HISTORY: CYST OF KIDNEY ACQUIRED TECHNIQUE: Grayscale and color Doppler ultrasound imaging of the kidneys. COMPARISON: 12/07/2017. FINDINGS: RIGHT KIDNEY: Normal renal size. Measures 9.2 x 3.3 cm. Cortical echogenicity is normal. Normal cortical thickness. There is no hydronephrosis. There are no shadowing calculi. LEFT KIDNEY: Normal renal size. Measures 9.9 x 4.2 cm. Cortical echogenicity is normal. Normal cortical thickness. There is no hydronephrosis. There are no shadowing calculi. Several simple parapelvic cysts, the largest measuring 1.7 cm. Findings are unchanged compared with the previous ultrasound. Procedure Note Tamanna Colmenares MD - 12/25/2018 EXAM: US KIDNEYS HISTORY: CYST OF KIDNEY ACQUIRED TECHNIQUE: Grayscale and color Doppler ultrasound imaging of thekidneys. COMPARISON: 12/07/2017. FINDINGS: RIGHT KIDNEY: Normal renal size. Measures 9.2 x 3.3 cm. Corticalechogenicity is normal. Normal cortical thickness. There is nohydronephrosis. There are no shadowing calculi. LEFT KIDNEY: Normal renal size. Measures 9.9 x 4.2 cm. Corticalechogenicity is normal. Normal cortical thickness. There is nohydronephrosis. There are no shadowing calculi. Several simple parapelviccysts, the largest measuring 1.7 cm. Findings are unchanged compared withthe previous ultrasound. IMPRESSION: No renal calculi. Normal renal size and cortical echogenicity. Several LEFT renal parapelvic cysts, unchanged compared with the priorstudy. POS - [id number] Tayler STRINGER IMG US RENAL Final Resu lt documented in this encounter Visit Diagnoses Diagnosis Cyst of kidney, acquired- Primary Acquired cyst of kidney Cyst of kidney, acquired Acquired cyst of kidney documented in this encounter Care Teams Mixed Livestock Farm Worker Relationship Specialty Start Date End Date Edita Garza CNP [address] [place] [address] [email or web address] PCP - General Internal Medicine 09/29/18 06/02/19 Edita Garza CNP [address] [place] [address] [email or web address] PCP - General Internal Medicine 06/03/19 10/27/22 Garrett Funez MD [address] [place] [address] [email or web address] PCP - General Internal Medicine 10/28/22 04/04/23 Unknown, Miquel, PCP - General 04/05/23 08/30/23 Glenis Gloria, PHILL [address] [place] [address], [address] [place] [address] [email or web address] PCP - General Family Medicine 08/31/23 Hair Bowser MD [address] [place] [address] Insurance Assigned Provider 08/06/17 11/18/18 David Lezama MD [address] [place] [address] Ophthalmology 04/17/19 Hair Bowser MD [address] [place] [phone] [email or web address] Insurance Assigned Provider 08/15/19 04/04/23 Lm Suarez MD [address] [place] [phone] [email or web address] Urology 03/04/20 Hair Bowser MD [address] [place] [address] [email or web address] Insurance Assigned Provider 08/15/19 05/14/23 David Alford DO [address] [place] [address] [email or web address] Ammonia Technician Endocrinology 08/15/24 Nilda Oh MD [address] [place] [address] [address] [place] [address] [email or web address] Obstetrics and Gynecology 08/15/24 documented as of this encounter Additional Source Comments The information contained in this document represents components of the legal health record. It is not the complete legal health record.[facility]
--- OUTSIDE RECORDS SUMMARY | 2025-02-27 22:30 | XMS_ITS | Clinical Summary ---
Author Organization [facility] Address [address] [place] [address] Phone Care Team Providers Care Changer Fixer Name Role Phone David Lezama MD Unavailable [phone] Lm Suarez MD Unavailable [phone] Glenis Gloria [employer] Primary Care Provid er David Alford DO Unavailable Nilda Oh MD Unavailable Allergies Active Allergy Reactions Criticality Noted Date Comments Penicillins Rash Low 03/15/2017 Medications calcium carbonate-vitamin D3 1,000 mg(2,500 mg)-800 unit Tab Take by mouth. Active estradioL (YUVAFEM) [address] 1 tablet (10 mcg total) vaginally 2 (two) times a week. 24 tablet 2 5 Active alendronate (FOSAMAX) 70 MG tabletIndications :Age-related osteoporosis without current pathological fracture Take 1 tablet (70 mg total) by mouth every 7 days. Take in the morning with a full glass of water, on an empty stomach, and do not take anything else by mouth or lie down for the next 30 min. 12 tablet 3 5 Active cholecalciferol (VITAMIN D3) 2,000 unit capsuleIndication s:Vitamin D deficiency Take 1 capsule (2,000 Units total) by mouth daily. 90 capsule 3 5 Active Active Problems Problem Noted Date Diagnosed Date Impaired fasting glucose 10/08/2024 Assessment & Plan (10/08/2024 12:25 PM EDT): Her fasting blood sugar level is 110, which is above the normal range for non-diabetics. She was advised to combine sugar intake with proteins and fats to prevent rapid spikes in blood sugar levels. An A1c test will be added to her next lab work to monitor her average blood sugar levels. Urge incontinence of urine 08/15/2024 Assessment & Plan (10/08/2024 12:25 PM EDT): The urinary urgency is likely due to pelvic floor dysfunction, a common issue among women, particularly post-menopause. Physical therapy was recommended as an effective treatment option. A referral to a physical therapist in [place] will be initiated. If physical therapy does not yield satisfactory results, alternative treatments, including medications for overactive bladder, may be considered. Psoriasis of scalp 08/15/2024 Assessment & Plan (10/08/2024 12:25 PM EDT): She has been using a prescribed lotion and shampoo intermittently, which has made a difference. She was advised to continue using these treatments as needed and to follow up with her taker out in 01/2025. Post-menopausal atrophic vaginitis 09/14/2023 Overview (05/23/2024): Most prominent sx is urinary urgency, resolved in past with use of vaginal estrogen Assessment & Plan (10/08/2024 12:40 PM EDT): Recently resumed estradiol vaginal tablets. - Followed by [facility] (Dr Oh). Assessment & Plan (05/23/2024 8:36 AM EST): Will resume use, start daily x 2 weeks then twice weekly Assessment & Plan (09/14/2023 11:17 PM EDT): The patient was informed that UVafem can be used at her discretion as long as it is beneficial. Adenomatous polyp of colon 08/31/2023 Assessment & Plan (10/08/2024 12:35 PM EDT): Colonoscopy in 01/2016 with removal of small tubular adenomas. Last colonoscopy done 06/24/2021, pathology results not available. ?3 or 5 year recall. She believes she is due for repeat next year. - Followed by GI through [facility] (Dr Butler). Assessment & Plan (08/31/2023 10:29 AM EDT): Last colonoscopy done in 2021. Always has polyps, most recent pathology not available. Followed by GI through [facility] (Dr Butler). Diverticulosis of colon 08/31/2023 Assessment & Plan (09/14/2023 11:18 PM EDT): The patient was counseled to adhere to a high-fiber diet. Assessment & Plan (09/14/2023 11:18 PM EDT): >>ASSESSMENT AND PLAN FOR DIVERTICULOSIS WRITTEN ON 03/04/2020 6:14 AM BY ELINA CHAMBERS, THERAPEUTIC RADIOLOGIST Stable, no recent diverticulitis. Hemorrhoids 08/31/2023 Assessment & Plan (09/14/2023 11:18 PM EDT): The patient was informed that [id number] medications, including hydrocortisone 1 percent combined with lidocaine and phenylephrine, are available in all combinations, depending on the symptoms she is experiencing. A prescription for hydrocortisone 2.5 percent was issued. Generalized anxiety disorder 02/03/2022 Assessment & Plan (10/08/2024 12:26 PM EDT): Stable general anxiety, in good control with good self-care: healthy eating, adequate sleep, avoiding negative psychoactive substances [like alcohol, caffeine] and regular exercise. Emphasized the importance of cognitive skills and encouraged pt to connect with a therapist. Assessment & Plan (09/14/2023 11:21 PM EDT): We discussed various medication options for her anxiety. Offered rx hydroxyzine to manage her itching, sleep, and anxiety, risks/benefits/side effects reviewed. Has used previously w/ poison shereen rash, declines for now. Assessment & Plan (07/19/2022 7:08 AM EDT): Discussed management options could try buspar. She is also open to seeing a counselor. Will consider and f/u. Urinary frequency 11/30/2021 Overview (11/30/2021): Long-term symptom. Has been evaluated by urology with normal CT scan of abdomen and pelvis, urine cytology negative x3 Also expresses lack of feeling of urge to void as well Assessment & Plan (01/26/2022 5:17 PM EDT): Bladder diary indicates total daily volume ranging from 150 to 1000 mL over 3 days, presuming all voids were recorded. Urine analyses indicate always more concentrated urine Spent some time discussing that she would benefit from higher fluid intake and discussed some strategies, which as squeezing lemon or robinson into some water refrigerating it etc. Recommend continuing the vaginal estrogen because it has seemed to help with the sensation she has been having Assessment & Plan (11/30/2021 1:23 PM EDT): Discussed possible overactive bladder although that does not fit with having no urge to void during the day. May respond to vaginal estrogen treatment, prescription sent for the cream Men daily voiding diary explained that in detail and asked that she also notes about whether not she had the urge to void, and also record what she is drinking Thickened endometrium 03/27/2020 Age-related osteoporosis mell gardner current pathological fracture 10/06/2018 Assessment & Plan (10/08/2024 12:25 PM EDT): She is currently taking Fosamax and reports no adverse effects. She was advised to continue taking Fosamax with a full glass of water and to remain upright afterward to avoid esophagitis. A bone density test is scheduled for 10/2024 to monitor the effectiveness of the treatment. Assessment & Plan (07/04/2024 3:24 PM EST): She remains vitamin D deficient despite taking vitamin D 1600 units daily my advice would be to increase the vitamin D by another 2000 units of D3. In the meantime she is getting adequate calcium and I did not find any other secondary causes of osteoporosis. She does weight training. She will benefit from an antiresorptive medication. She has decided to use alendronate 70 mg weekly. She was advised to take this medication fasting with water. Wait 30 minutes before eating and she must remain upright either sitting standing or walking for the next 30 minutes after taking this medication. She should repeat lab work fasting in the morning 2 weeks prior to the follow-up visit with me. Also she is due for repeat DXA scan on 10/20/[address] and she should try to get this done. Assessment & Plan (03/28/2024 10:13 AM EST): The patient was diagnosed with osteoporosis in 2019. Her risk factors for osteoporosis include age, menopause, family history of hip fracture, and vitamin D deficiency. She has lost 0.5 inches in height. She has not had any fractures. Currently takes calcium and vitamin D supplements. She has not been placed on antiresorptive medications. Repeat DXA scan showed that she had an improvement in the spine but decreased bone mineral density in the forearm. At this point I will do biochemical workup for further evaluation of secondary causes of osteoporosis. The patient informs me that she really does not like to take medications. On her last visit with her primary care physician she was informed that there are choices for management. However she felt that it would be best to speak with the materials tech. I will give the patient information on antiresorptive medications so that she can read but I am not going to prescribe any medications at this point. She should have biochemical workup first to find if there is another etiology that we need to address first. The antiresorptive medications are the bisphosphonates and rank ligand antagonists. The bisphosphonates come in oral form and IV form. The oral form is alendronate, this is a 70 mg tablet that is taken once a week with water on an empty stomach. The patient must not eat for 30 minutes and remain upright in a sitting or standing position. This medication may be associated with reflux. This medication can be used up to 5 years and at that point we reevaluate. If the bone density has not improved we can switch to another medication or continue the same medications for another 5 years. If there is improvement in bone mineral density then we can do a drug holiday. The IV form is called zoledronic acid/ Reclast. This is administered in the hospital as a yearly infusion. This medication can be used up to 3 years. Again this medication also can be repeated for another 3 years if there is insufficient bone mineral density or the medication could be switch for something else. If good bone improvement then we can consider a drug holiday. It is associated with flulike symptoms such as muscle aches, headaches, etc. The other antiresorptive medication is rank ligand antagonist such as Prolia/ denosumab. This medication is administered subcutaneously in the office every 6 months. With this medication you have to have adequate calcium intake otherwise hypocalcemia may develop. Furthermore the medication must not be missed there is a 2-week window in which the patient must have the injection. If the patient misses the injection then there will be rapid decrease in bone mineral density. Furthermore if the patient wants to stop the medication that we will have to take alendronate for period of 1 year. If the patient does not take any medications at all after stopping Prolia then they will return to their original bone mineral density within 12 months. All of these medications are associated with atypical femur fracture and jaw necrosis after prolonged use. Prolonged use is considered to be approximately 5 years. The risk of atypical femur fracture approximately 0.8% and for jaw necrosis is approximately 0.1%. This can translate to up to 5 people out of 10,000. There are other medications such as anabolic hormones. These include Forteo and Tymlos which are basically the same medication but different brands. These medications are injected by the patient on a daily basis at nighttime right before going to bed. This medication is good for period of 2 years. It is administered in the evening because it could be associated with dizziness. The last medication is Evenity which is administered in the office on a monthly basis for period of 1 year. This medication cannot be used if the patient had a myocardial infarction within the last 6 months. The anabolic hormones are very expensive and normally for a patient who has not use any of these medications they usually get one of the antiresorptive medications such as alendronate, zoledronic acid or Prolia. Assessment & Plan (09/14/2023 11:19 PM EDT): The patient was advised to engage in weight-bearing exercises such as walking, resistance training, weightlifting, and body weight training. She was also advised to ensure adequate calcium and vitamin D intake. The patient was educated about Fosamax, injections, or IV infusions. A referral to endocrinology was made. 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 Assessment & Plan (09/14/2023 11:22 PM EDT): Continues on calcium supplement with vitamin D. Resolved Problems Problem Noted Date Diagnosed Date Resolved Date Rash of face 07/19/2022 10/08/2024 Assessment & Plan (07/19/2022 7:07 AM EDT): Try hydrocortisone to rash, ok to use regular moisturizer as well. Derm if no improvement of rash in 1 week Vulvar itching 11/30/2021 09/14/2023 Overview (11/30/2021): Labia majora, consistent with mild chronic irritation such as eczema Assessment & Plan (01/26/2022 5:18 PM EDT): Improved with topical triamcinolone, recommend considering once weekly use or frequent use of an emollient Poison shereen dermatitis 11/17/20202024 Assessment & Plan (09/14/2023 11:18 PM EDT): The patient was informed that repeat exposure can exacerbate her reaction over time. Assessment & Plan (11/17/2020 9:57 PM EDT): The poison shereen dermatitis is extensive and severe enough that both the topical and a p.o. prednisone approach should be prescribed. 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 She can use the topical steroid called in twice daily for 10 to 14 days. Prior to starting the topical steroid we would like the patient to go 1 more time into the shower thoroughly wash with soap all areas of her body to try and get any excess oil poison shereen off of her body. Encounter for Medicare annual wellness exam 10/06/2018 12/02/2020 Assessment & Plan (10/06/2018 9:12 AM EDT): Forms reviewed, completed. Discussed general health maintenance including: Continue healthy, balanced diet consisting of whole foods and adequate fiber; minimize processed foods. Drink 6-8 glasses of water daily. Physical activity for at least 30 minutes most days of the week. Discussed appropriate BMI. Recommend goal of 8 hours continuous sleep per night. Please wear seatbelts regularly. Please see pt education re: health maintenance and need for f/u if any concerns. Encouraged self-breast awareness. Encouraged regular monitoring of skin lesions; consider referral for derm eval with any concerns. Discussed daily sunscreen application and minimizing prolonged UV exposure. Immunizations reviewed. Discussed importance of regular dental and opthalmology f/u. Reviewed after hours coverage and contact information. Abnormal mammogram 11/21/2017 Caliectasis 11/21/2017 10/08/2024 Leukopenia 11/21/2017 09/14/2023 Osteopenia 11/21/2017 10/16/2019 Overview (10/06/2018): 09/2018 T score spine -3.5. Osteopenia of femur, hip. Assessment & Plan (10/06/2018 9:12 AM EDT): Repeat DXA Encounters Date Type Department Care Team Description 01/08/2025 3:46 PM EDT - 01/08/2025 5:47 PM EDT Emergency [facility] [address] [place] [id number] Discharge Disposition: Home or Self Care 01/08/2025 Procedure Pass [facility], Ct Scan - [facility] [address] [place] [address] 01/08/2025 Telephone [facility] [address] [place] [address] [place] [address] Glenis Gloria, THERAPEUTIC RADIOLOGIST Pain from Last 3 Months Immunizations Immunization Administration Dates Next Due COVID-19 (Pre-02/28) Pfizer Vaccine, mRNA, PF 08/06/2020,07/17/2020 INFLUENZA, SPLIT VIRUS, TRIV ALENT W/ PRESERVATIVE IM 01/07/2021,03/24/2015,01/28/2015 Influenza High-Dose Quadriva lent Preservative Free IM 02/03/2022,03/03/2020 Influenza High-Dose Trivalen t Preservative Free IM 08/15/2024,04/17/2019,01/28/2015,01/23 Pneumococcal conjugate PCV13 05/27/2016 Pneumococcal polysaccharide PPSV23 04/25/2015 Td (adult) 5 Lf Tetanus Toxo id, PF, Adsorbed 10/12/2018 Family History Medical History Relation Comments CV disease Father Cancer Father CV disease Mother Cancer Mother Cancer Sibling Relation Status Comments Daughter Alive Father Mother Sibling Son 1 Alive Son 2 Alive Son 3 Alive Social History Tobacco Use Types Packs/Day Years [...] enough money to get more. Never True Residential Stability Answer Date Recor ded What is your housing situation today? I have diego sing 01/08/2025 How many times have you move [...] Orientation Straight 06/03/2019 9: 50 AM EST Last Filed Vital Signs Vital Sign Reading Time Taken Comments Blood Pressure 140/63 01/08/2025 5:11 PM EDT Pulse 96 01/08/2025 5:11 PM EDT Temperature 36.1 C (97 F) 01/08/2025 4:00 PM EDT Respiratory Rate 16 01/08/2025 5:11 PM EDT Oxygen Saturation 100% 01/08/2025 5:11 PM EDT Inhaled Oxygen Concentration - - Weight 61.2 kg (135 lb) 01/08/2025 1:01 PM EDT Height 154.9 cm (5' 1 ) 01/08/2025 1:01 PM EDT Body Mass Index 25.51 01/08/2025 1:01 PM EDT Plan of Treatment Upcoming Encounters Date Type Department Care Team (Late st Contact Info) Description 06/03/2025 8:30 AM EST Office Visit [facility] [address] [place] [address] [place] [address] David Alford DO [address] [place] [address] [place] [address] 08/16/2025 10:30 AM EDT Office Visit [facility] [address] [place] [address] [place] [address] Glenis Gloria, THERAPEUTIC RADIOLOGIST [address] [facility] [address] [place] [address] [email or web address] Health Maintenance Due Date Last Done Comments COLOGUARD 1993 FIT TEST 1993 FOBT 1993 SIGMOIDOSCOPY 1993 VIRTUAL COLONOSCOPY 1993 ZOSTER VACCINES (1 of 2) 1998 RSV VACCINE (1 - 1-dose 75+ series) 10/26/2023 INFLUENZA VACCINE (#1) 2024 , 02/03/2022, 02/03/2022, Additional history exists COVID-19 VACCINE ( season) 2025 03/07/2022, 02/09/2021, 08/06/2020, Additional history exists DEPRESSION SCREENING 08/15/2025 08/15/2024 COLONOSCOPY 06/24/2026 06/24/2021, 02/04/2016 COLORECTAL CANCER SCREENING 06/24/2026 FOLLOW UP BONE DENSITY TESTING 07/04/2026 07/04/2024, 10/20/2022, 02/03/2022, Additional history exists Adult Td,Tdap Booster 10/12/2028 10/12/2018 LIPID PANEL 04/13/2029 04/13/2024, 01/08, 02/03/2022, Additional history exists PNEUMOCOCCAL VACCINES (50+ years) Completed 05/27/2016, 04/25/2015 HEPATITIS C SCREENING Completed 02/03/2022, 022 OSTEOPOROSIS SCREENING INITIAL (ONE-TIME) Completed 07/04/2024, 10/20/2022, 02/03/2022, Additional history exists SMOKING STATUS SCREENING (Once After 26 Yrs) Completed 01/08/2025 HEPATITIS A VACCINES Aged Out No long er eligible based on patient's age to complete this topic HIB VACCINES Aged Out No longer eligi ble based on patient's age to complete this topic MENINGOCOCCAL VACCINES (ACWY) Aged Out No longer eligible based on patient's age to complete this topic MENINGOCOCCAL VACCINES (B) Aged Out N o longer eligible based on patient's age to complete this topic Medical Devices Not on file Procedures Procedure Name Priority Date/Time Associated Diagnosis Comments CT ABDOMEN/PELVIS WITH CONTRAST Routine 01/08/2025 5:03 PM EDT URINE SEDIMENT STAT 01/08/2025 3:55 PM EDT URINALYSIS W/REFLEX URINE CULTURE STAT 01/08/2025 3:55 PM EDT URINE CULTURE Routine 01/08/2025 3:55 PM EDT C-REACTIVE PROTEIN Routine 01/08/2025 2: 12 PM EDT LIPASE STAT 01/08/2025 2:12 PM EDT LFTS (HEPATIC PANEL) STAT 01/08/2025 2:12 PM EDT BASIC METABOLIC PANEL STAT 01/08/2025 2:12 PM EDT CBC AND DIFFERENTIAL STAT 01/08/2025 2:12 PM EDT BD DXA MONITORING Routine 07/04/2024 3:2 3 PM EST Age-related osteoporosis without current pathological fracture LIPID PANEL Routine 04/13/2024 8:36 AM EST Vitamin D deficiency, unspecified HEPATITIS C ANTIBODY, QUALITATIVE Routine 02/03/2022 9:20 AM EDT Need for hepatitis C screening test HM COLONOSCOPY FOR RESULT ENTRY ONLY Routine 06/24/2021 from Last 3 Months or Most Recently Relevant to Health Maintenance Results * CT ABDOMEN/PELVIS WITH CONTRAST (01/08/2025 5:03 PM EDT) [facility] COMMENT Acute uncomplicated colonic diverticulitis. [facility] RECOMMENDATION COMMENT Acute uncomplicated colonic diverticulitis; Expansile intermediate density endometrium 9 mm [facility] Anatomical Region Laterality Modality Abdomen, Pelvis Computed Tomogra phy 01/08/2025 5:20 PM EDT Impressions 01/08/2025 5:26 PM EDT 1. Acute uncomplicated colonic diverticulitis. 2. Expansile intermediate density along the endometrium measuring 9 mm, indeterminate, may be due to underlying lesion or hyperplasia. Outpatient pelvic ultrasound would better help assess. A clinically significant result was initiated on 01/08/2025 5:24 PM, Message ID [id number]. Narrative 01/08/2025 5:[address] ABDOMEN/PELVIS WITH CONTRAST Referring clinician's provided indication for this examination in Epic: * Abdominal pain, acute, nonlocalized; * Diverticulitis suspected TECHNIQUE: Multidetector-row CT of the abdomen and pelvis was performed after administration of intravenous contrast using tailored dose modulation techniques. Images were reconstructed in the axial, coronal, and sagittal planes. COMPARISON: CT ABDOMEN/PELVIS WITH CONTRAST FINDINGS: Lower Chest: No consolidation or pleural effusions. Liver: Similar inferior right hepatic lobe cyst 23:36). Biliary: Normal gallbladder. No biliary ductal dilatation. Spleen: No splenomegaly or focal lesions. Pancreas: No masses or ductal dilatation. Adrenal Glands: No nodules. Kidneys/Ureters: No solid masses, stones, or hydronephrosis. Bilateral renal parapelvic cysts. Subcentimeter circumscribed additional hypodensities such as along the right inferior pole (3:33), left interpole (3:26), too small to characterize though statistically likely simple cysts. Bowel: Appendix not visualized, no secondary signs of appendicitis. Colonic diverticulosis. Enhancing superiorly directed descending colon diverticulum at level of the hepatic flexure (904::46) which is partially fluid-filled and shows significant surrounding stranding and adjacent thickening of the paracolic gutter (904:46). No adjacent focal fluid collection. Peritoneum/Retroperitoneum: No masses, pneumoperitoneum, or fluid. Trace stranding/ascites adjacent to above at the hepatic flexure, likely reactive. Lymph Nodes: No lymphadenopathy. Pelvic Organs/Bladder: 1.4 cm uterine hyperdensity, likely fibroid. Expansile intermediate density appearance to the endometrium measuring 9 mm (905:66). Vessels: No abdominal aortic aneurysm. Atherosclerosis. Bones/Soft Tissues: Degenerative changes of the spine most pronounced L4-L5 with near complete disc space narrowing. Tiny fat-containing umbilical hernia. Small fat-containing right inguinal hernia. Procedure Note Sara Orta MD - 01/08/2025 CT ABDOMEN/PELVIS WITH CONTRAST Referring clinician's provided indication for this examination in Epic: *Abdominal pain, acute, nonlocalized; * Diverticulitis suspected TECHNIQUE: Multidetector-row CT of the abdomen and pelvis was performedafter administration of intravenous contrast using tailored dosemodulation techniques. Images were reconstructed in the axial, coronal,and sagittal planes. COMPARISON: CT ABDOMEN/PELVIS WITH CONTRAST FINDINGS: Lower Chest: No consolidation or pleural effusions. Liver: Similar inferior right hepatic lobe cyst 23:36). Biliary: Normal gallbladder. No biliary ductal dilatation. Spleen: No splenomegaly or focal lesions. Pancreas: No masses or ductal dilatation. Adrenal Glands: No nodules. Kidneys/Ureters: No solid masses, stones, or hydronephrosis. Bilateralrenal parapelvic cysts. Subcentimeter circumscribed additionalhypodensities such as along the right inferior pole (3:33), left interpole(3:26), too small to characterize though statistically likely simplecysts. Bowel: Appendix not visualized, no secondary signs of appendicitis.Colonic diverticulosis. Enhancing superiorly directed descending colondiverticulum at level of the hepatic flexure (904::46) which is partiallyfluid-filled and shows significant surrounding stranding and adjacentthickening of the paracolic gutter (904:46). No adjacent focal fluidcollection. Peritoneum/Retroperitoneum: No masses, pneumoperitoneum, or fluid. Tracestranding/ascites adjacent to above at the hepatic flexure, likelyreactive. Lymph Nodes: No lymphadenopathy. Pelvic Organs/Bladder: 1.4 cm uterine hyperdensity, likely fibroid.Expansile intermediate density appearance to the endometrium measuring 9mm (905:66). Vessels: No abdominal aortic aneurysm. Atherosclerosis. Bones/Soft Tissues: Degenerative changes of the spine most pronouncedL4-L5 with near complete disc space narrowing. Tiny fat-containingumbilical hernia. Small fat-containing right inguinal hernia. IMPRESSION: 1. Acute uncomplicated colonic diverticulitis. 2. Expansile intermediate density along the endometrium measuring 9 mm,indeterminate, may be due to underlying lesion or hyperplasia. Outpatientpelvic ultrasound would better help assess. A clinically significant result was initiated on 01/08/2025 5:24 PM, MessageID [id number]. us Sada Toro PA-C IMG CT ABD/PELVIS Final Resu lt * (ABNORMAL) Urinalysis w/reflex Urine Culture (01/08/2025 3:55 PM EDT) COLOR Yellow Yellow [facility] CLARITY HAZY [facility] GLUCOSE Negative Negative [facility] BILI Negative Negative [facility] KETONES 1+(A) Negative [facility] SPECIFIC GRAVITY 1.025 1.005 - 1.030 [facility] BLOOD Trace(A) Negative [facility] PH 6.0 5.0 - 8.0 [facility] Protein-UA Negative Negative [facility] NITRITE Negative Negative [facility] Leukocyte esterase, ur 1+(A) Negative [facility] Urine (Urine) 01/08/2025 3:5 5 PM EDT 01/08/2025 5:47 PM EDT us Jordy Salmon MD URINE ORDERABLES Final Result [facility] [address] [place] [address] * (ABNORMAL) Urine Culture (01/08/2025 3:55 PM EDT) Special Requests None Reflexed from [id number] 01/08/2025 6:07 PM EDT [facility] Urine Culture >100,000 colony forming units per mL ESCHERICHIA COLI(A) 01/10/2025 8:15 AM EDT [facility] Urine 01/08/2025 3:55 PM EDT 01/08/2025 5:47 PM EDT Narrative Organism Antibiotic Method Susceptibility Escherichia coli Ampicillin HOLLIE METHOD <=2: Susceptible Escherichia coli Ampicillin + Sulbactam HOLLIE METHOD <=2: Susceptible Escherichia coli Cefepime HOLLIE METHOD <=0.12: Susceptible Escherichia coli Ceftazidime HOLLIE METHOD <=0.5: Susceptible Escherichia coli Ceftriaxone HOLLIE METHOD <=0.25: Susceptible Escherichia coli Ciprofloxacin HOLLIE METHOD <=0.06: Susceptible Escherichia coli Extended Spectrum B-lactamase HOLLIE MET HOD Negative Escherichia coli Gentamicin HOLLIE METHOD <=1: Susceptible Escherichia coli Levofloxacin HOLLIE METHOD <=0.12: Susceptible Escherichia coli Nitrofurantoin HOLLIE METHOD <=16: Susceptible Escherichia coli Piperacillin-tazobactam HOLLIE METHOD <=4: Susceptible Escherichia coli Trimethoprim/sulfamethoxazole HOLLIE MET HOD <=20: Susceptible Escherichia coli Cefazolin(urine) HOLLIE METHOD <=1: Susceptible Comment: Jordy Salmon MD MICROBIOLOGY - NERAL ORDERABLES Final Result [address] [address] * (ABNORMAL) Urine sediment (01/08/2025 3:55 PM EDT) WBC 21-49(A) NONE SEEN /hpf [facility] RBC 3-5(A) NONE SEEN /hpf [facility] URINE EPITHELIAL 21-49(A) NONE SEEN [facility] MUCUS 2+(A) NONE SEEN /hpf [facility] BACTERIA 3+(A) NONE SEEN /hpf [facility] 01/08/2025 3:55 PM EDT 01/08/2025 5:47 PM EDT Jordy Salmon MD URINE ORDERABLES Final Result [address] [address] * (ABNORMAL) LFTs (hepatic panel) (01/08/2025 2:12 PM EDT) ALKALINE PHOSPHATASE 78 39 - 117 U/L [facility] TOTAL BILIRUBIN 0.9 0.0 - 1.2 mg/dL [facility] DIRECT BILIRUBIN 0.3(H) 0.0 - 0.2 mg/dL [facility] Bilirubin (Indirect) 0.6 0 - 1.5 mg/dL [facility] AST 16 0 - 37 U/L [facility] ALT 12 0 - 40 U/L [facility] TOTAL PROTEIN 7.7 6.5 - 8.0 g/dL [facility] ALBUMIN 4.1 3.9 - 4.8 g/dL [facility] GLOBULIN 3.6 1 - 4.8 g/dL [facility] A/G Ratio 1.14 1.00 - 4.80 RATIO [facility] Blood 01/08/2025 2:12 PM EDT 01/08/2025 2:28 PM EDT us Jordy Salmon MD LAB BLOOD ORDERAB LES Final Result Performing Organization Address City/State/[facility] Co de Phone Number [facility] [address] [place] [address] * (ABNORMAL) CBC and differential (01/08/2025 2:12 PM EDT) Pathologist [facility] WBC 8.02 4.00 - 11.00 K/uL [facility] RBC 4.59 4.00 - 5.20 M/uL [facility] HGB 14.2 12.0 - 16.0 g/dL [facility] HCT 41.6 36.0 - 46.0 % [facility] PLT 146(L) 150 - 450 K/uL [facility] MCV 90.6 80.0 - 100.0 fL [facility] MCH 30.9 27.0 - 31.0 pg [facility] MCHC 34.1 32.0 - 36.0 g/dL [facility] RDW 12.4 11.5 - 14.5 % [facility] MPV 10.3 8.4 - 12.0 fL [facility] NRBC 0.00 0.00 /100 WBCs [facility] ABSOLUTE NRBC 0.00 0.00 K/uL [facility] DIFF METHOD Auto [facility] NEUTS 79.9(H) 48.0 - 76.0 % [facility] LYMPHS 11.2(L) 18.0 - 41.0 % [facility] MONOS 8.1 4.0 - 11.0 % [facility] EOS 0.4 0.0 - 5.0 % [facility] BASOS 0.2 0.0 - 1.5 % [facility] Granulocytes, immature (%) 0.2 0.0 - 0.9 % [facility] ABSOLUTE NEUTS 6.40 1.92 - 7.60 K/uL [facility] ABSOLUTE LYMPHS 0.90 0.72 - 4.10 K/uL [facility] ABSOLUTE MONOS 0.65 0.16 - 1.10 K/uL [facility] ABSOLUTE EOS 0.03 0.00 - 0.50 K/uL [facility] ABSOLUTE BASOS 0.02 0.00 - 0.15 K/uL [facility] Granulocytes, immature 0.02 0.00 - 0.09 K/uL [facility] Blood 01/08/2025 2:12 PM EDT 01/08/2025 2:28 PM EDT us Jordy Salmon MD LAB BLOOD ORDERAB LES Final Result [address] [address] * (ABNORMAL) C-Reactive Protein (01/08/2025 2:12 PM EDT) C REACTIVE PROTEIN 109.0(H) 0.0 - 4.0 mg/L [facility] 01/08/2025 2:12 PM EDT 01/08/2025 2:28 PM EDT us Jordy Salmon MD LAB BLOOD ORDERAB LES Final Result [address] [address] * Lipase (01/08/2025 2:12 PM EDT) LIPASE 20 16 - 63 U/L [facility] Blood 01/08/2025 2:12 PM EDT 01/08/2025 2:28 PM EDT us Jordy Salmon MD LAB BLOOD ORDERAB LES Final Result [address] [address] * (ABNORMAL) Basic metabolic panel (01/08/2025 2:12 PM EDT) Pathologist [facility] SODIUM 138 133 - 146 mmol/L [facility] CHLORIDE 102 96 - 108 mmol/L [facility] POTASSIUM 4.4 3.3 - 5.1 mmol/L [facility] CO2 25 21 - 35 mmol/L [facility] BUN 17 6 - 19 mg/dL [facility] CREATININE 0.70 0.5 - 1.5 mg/dL [facility] GLUCOSE 107(H) 70 - 99 mg/dL [facility] CALCIUM 9.0 8.4 - 10.3 mg/dL [facility] EGFR 90 >59 mL/min/1.7 3m2 [facility] Comment:Estimated glomerular filtration rate calculated using the CKD-EPI refit equation. ANION GAP 15 10 - 20 mmol/L [facility] Blood 01/08/2025 2:12 PM EDT 01/08/2025 2:28 PM EDT us Jordy Salmon MD LAB BLOOD ORDERAB LES Final Result [address] [address] * (ABNORMAL) Lipid panel (04/13/2024 8:36 AM EST) Pathologist [facility] HDL 64 mg/dL [facility] Comment: Interpretation <40 mg/dL: Low HDL cholesterol (major risk factor for CHD) Greater than or equal to 60 mg/dL: High HDL cholesterol ( negative risk factor for CHD) HDL - cholesterol is affected by a number of factors, e.g. smoking, excerise, hormones, sex and age. CHOLESTEROL 169 0 - 240 mg/dL [facility] TRIGLYCERIDES 90 30 - 160 mg/dL [facility] LDL 87 50 - 129 mg/dL [facility] Comment: LDL levels in terms of risk for coronary heart disease: <100 mg/dL: Optimal 100-129 mg/dL: Near or above optimal 130-159 mg/dL: Borderline high 160-189 mg/dL: High >190 mg/dL: Very High CARDIAC RISK RATIO 2.6(L) 3.3 - 4.4 C [facility] Blood 04/13/2024 8:36 AM EST 04/13/2024 8:43 AM EST us Glenis Gloria THERAPEUTIC RADIOLOGIST LAB BLOOD ORDERABLES Final Result Performing Organization Address City/[facility]/ZIP Co de Phone Number [address] [address] * DEXA SCAN (10/20/2022) us Elina Chambers [employer] Laureano matthew Result - Final * Hepatitis C antibody, qualitative (02/03/2022 9:20 AM EDT) Pathologist [facility] HCV NON-REACTIV E NON-REACTI VE [facility] Blood 02/03/2022 9:20 AM EDT 02/03/2022 9:25 AM EDT Alicja Maier MANAGER SUSTAINABILITY LAB BLOOD ORDERABLES Final Resu lt Performing Organization Address [facility]/ZIP Co de Phone Number [address] [address] * COLONOSCOPY FOR RESULT ENTRY ONLY (06/24/2021) Pathologist [facility] Colonoscopy 5 yr recall us Historical Provider HEALTH MAINTENANCE Final Result from Last 3 Months or Most Recently Relevant to Health Maintenance Insurance MEDICARE PART A & B [facility] MEDICARE PART A & B [facility] MEDICARE PART A & B [place] b-datum [facility] MEDICARE PART A & B [facility] MEDICARE [facility] A & B [employer] [facility] MEDICARE PART A & B [employer] FEDERAL MEDICARE PART A & B [facility] MEDICARE PART A & B [facility] FEDERAL MEDICARE PART A & B [facility] Advance Directives For more information, please contact: [phone] (9AM - 5PM [place], Tuesday-Tuesday) * Full Code (Presumed) (Latest Code Status on File) Date Activated Date Inactivated Comments 03/09/2019 6:16 AM 03/09/2019 12:17 PM Care Teams Changer Fixer Relationship Specialty Start Date End Date Glenis Gloria CNP [address] [place] [address], [address]nd [place] [address] PCP - General Family Medicine 08/31/23 David Lezama MD [address] [place] [address] Ophthalmology 04/17/19 Lm Suarez MD [address] [place] [address], [address] [place] [address] [email or web address] Urology 03/04/20 David Alford DO [address] [place] [address] [email or web address] Sanitation Manager Endocrinology 08/15/24 Nilda Oh MD [address] [facility] [address] [place] [address] [email or web address] Obstetrics and Gynecology 08/15/24 Additional Source Comments The information contained in this document represents components of the legal health record. It is not the complete legal health record.[facility]
--- OUTSIDE RECORDS SUMMARY | 2025-02-27 22:30 | XMS_ITS | Encounter Summary ---
Author Organization [facility] Address [address] [place] [address] Phone Care Team Providers Care Business Technology Architect Name Role Phone David Lezama MD Unavailable [phone] Edita Garza [facility] Primary Care Provider Hair Bowser MD Unavailable [phone] Lm Suarez MD Unavailable [phone] Garrett Funez MD Primary Care Provider [phone] Unknown, Unknown Primary Care Provider Hair Summers MD Unavailable [phone] Glenis Gloria [facility] Primary Care Provid er David Alford DO Unavailable Nilda Oh MD Unavailable Encounter Details Date Type Department Care Team (Latest Contact Info) Description 01/22/2020 Transcribe Orders Virtual Department [address] [place] [address] Lm Suarez MD [address] [facility], [address] [place], [place] [id number] [email or web address] Cyst of kidney, acquired (Primary Dx) Social [...] 8:30 AM EST Office Visit [facility] [address] [place] [address] [place] [address] David Alford DO [address] [place] [address] 08/16/2025 10:30 AM EDT [facility] [address] [place] [address] [place] [address] Glenis Gloria, METAL DRAWER [address] [facility], 2nd [place] [address] documented as of this encounter Results * US Kidneys (02/11/2020 8:32 AM EDT) Anatomical Region Laterality Modality Abdomen, Kidney Ultrasound 02/11/2020 8:48 AM EDT Impressions 02/11/2020 8:55 AM EDT Bilateral parapelvic cyst. No no hydronephrosis or shadowing renal calculi. Partially imaged liver is echogenic which is suggestive of fatty infiltration. Narrative 02/11/2020 8:55 AM EDT US KIDNEYS TECHNIQUE: Ultrasound evaluation of the KIDNEYS AND BLADDER. Volumetric sweeps were obtained and reviewed. COMPARISON: US KIDNEYS FINDINGS: RIGHT KIDNEY: The right kidney measures 9.5 cm in length. There is a 1.2 x 0.8 x 0.9 cm parapelvic cyst in the interpolar region. Parenchyma is within normal limits. No hydronephrosis. No shadowing calculi. LEFT KIDNEY: The left kidney measures 9.7 cm in length. Likely parapelvic cyst measuring 2 x 1 x 1.3 cm. Parenchyma is within normal limits. No hydronephrosis. No shadowing calculi. BLADDER: Unremarkable. ADDITIONAL FINDINGS: The partially imaged liver is echogenic suggestive of fatty infiltration. Procedure Note Corbin Rodriguez MD - 02/11/2020 US KIDNEYS TECHNIQUE: Ultrasound evaluation of the KIDNEYS AND BLADDER. Volumetric sweeps wereobtained and reviewed. COMPARISON: US KIDNEYS FINDINGS: RIGHT KIDNEY: The right kidney measures 9.5 cm in length. There is a 1.2x 0.8 x 0.9 cm parapelvic cyst in the interpolar region. Parenchyma iswithin normal limits. No hydronephrosis. No shadowing calculi. LEFT KIDNEY: The left kidney measures 9.7 cm in length. Likelyparapelvic cyst measuring 2 x 1 x 1.3 cm. Parenchyma is within normallimits. No hydronephrosis. No shadowing calculi. BLADDER: Unremarkable. ADDITIONAL FINDINGS: The partially imaged liver is echogenic suggestive offatty infiltration. IMPRESSION: Bilateral parapelvic cyst. No no hydronephrosis or shadowing renalcalculi. Partially imaged liver is echogenic which is suggestive of fattyinfiltration. Lm Suarez MD [facility] US RENAL Final Result documented in this encounter Visit Diagnoses Diagnosis Cyst of kidney, acquired- Primary Acquired cyst of kidney Cyst of kidney, acquired Acquired cyst of kidney documented in this encounter Additional Health Concerns Assessment Noted Time PHQ-2 Depression Total Score: 1 10/16/19 20 9:32 AM EDT documented as of this encounter Care Teams Business Technology Architect Relationship Specialty Start Date End Date Edita Garza CNP [address] [place] [address] PCP - General Internal Medicine 06/03/19 10/27/22 Garrett Funez MD [address] [place] [address] [email or web address] PCP - General Internal Medicine 10/28/22 04/04/23 Unknown, Miquel, PCP - General 04/05/23 08/30/23 Faizan Glenisarmando Eldridge CNP [address] [place] [address], [address] [place] [address] [email or web address] PCP - General Family Medicine 08/31/23 David Lezama MD [address] [place] [address] Ophthalmology 04/17/19 Hair Bowser MD [address] [place] [address] [email or web address] Insurance Assigned Provider 08/15/19 04/04/23 Lm Suarez MD [address] [place] [address], [address] [place] [address] [email or web address] Urology 03/04/20 Hair Bowser MD [address] [place] [address] [email or web address] Insurance Assigned Provider 08/15/19 05/14/23 David Alford DO [address] [place] [address] [email or web address] Digital X Ray Service Engineer Endocrinology 08/15/24 Nilda Oh MD [address] [place] [address], [address] [place] [address] Obstetrics and Gynecology 08/15/24 documented as of this encounter Additional Source Comments The information contained in this document represents components of the legal health record. It is not the complete legal health record.[facility]
--- OUTSIDE RECORDS SUMMARY | 2025-02-27 22:30 | XMS_ITS | Patient Health Record ---
Author Organization [facility] Address [address] [place] [address] Care Team Providers Care Behavioral Interventionist Name Role Phone Edita Garza Primary Care Provider Shoaib Escalera Unavailable [phone] Allergies Allergen (clinical drug ingredient) Drug/Non Drug [...] Problem Status W/U Status Risk Notes Problem Screening for malignant neoplasm of colon (657986825) Encounter for screening for malignant neoplasm of colon (Z12.11) Active confirmed Problem History of adenomatous polyp of colon (913054124) History of adenomatous polyp of colon (Z86.010) Active confirmed Problem Screening for malignant neoplasm of rectum (744780028) Encounter for screening for malignant neoplasm of rectum (Z12.12) Active confirmed Problem Preprocedural examination (032287250612760) Preprocedural examination (Z01.818) Active confirmed Problem Diverticulosis of colon (916881797) Diverticulosis of colon (K57.30) Active confirmed Plan Of Treatment Pending Test Test Name Order Date Pathology 06/24/2021 Future Test Test Name Order Date COLONOSCOPY 11/18/2015 COLONOSCOPY 05/19/2021 Insurance Providers Payer Name Payer Address Payer Phone Subscriber Number Group Number Insured Name Patient Relationship to Insured Coverage Start Date Coverage End Date MEDICARE OF [place] [address] [place] [address] [phone] [id number] TERESO SEGUNDO Self - patient is the insured [facility] [address] [place], [place] [id number] TERESO SEGUNDO Self - patient is the [...] moderate sigmoid diverticulosis, and internal hemorrhoids Denies [place],DM,CVA,Lung disease,renal dise ase Anxiety Urinary incontinence Colonoscopy in 01/2016 with removal of sm all tubular adenomas Surgical History Surgery Date(Month/Year) Sinus surgery Left eye retina and cataract 6028-2949
--- OUTSIDE RECORDS SUMMARY | 2025-02-27 22:31 | XMS_ITS | Encounter Summary ---
Author Organization [facility] Address [address] [place] [address] Phone Care Team Providers Care Garment Worker Name Role Phone Alicja Maier Primary Care Provider [phone] Hair Bowser MD Unavailable [phone] Rika Burnett SENIOR DIRECTOR INSIGHT Unavailable [phone] Jonelle Fenton SENIOR DIRECTOR INSIGHT Unavailable [phone] Travis Wilson MD Unavailable [phone] Alicja Maier SENIOR DIRECTOR INSIGHT Unavailable [phone] Hair Bowser MD Unavailable [phone] Edita Garza [facility] Primary Care Provider David Lezama MD Unavailable [phone] Edita Garza [facility] Primary Care Provider Hair Bowser MD Unavailable [phone] Lm Suarez MD Unavailable [phone] Garrett Funez MD Primary Care Provider [phone] Unknown, Unknown Primary Care Provider Hair Summers MD Unavailable [phone] Glenis Gloria [facility] Primary Care Provid er David Alford DO Unavailable Nilda Oh MD Unavailable Encounter Details Date Type Department Care Team (Late Contact Info) Description 03/18/2017 Procedure Pass OR Admitting Dept - Virtual Department [address] [place] [id number] Social History Tobacco Use Types Packs/Day Years [...] Encounters Date Type Department Care Team (Late Contact Info) Description 06/03/2025 8:30 AM EST Office Visit [facility] [address] [place] [address] [place] [address] David Alford DO [address] [place] [address] 08/16/2025 10:30 AM EDT Office Visit [facility] [address] [place] [address] [place] [address] Glenis Gloria, PHILL [address] [facility], 2nd [place] [address] documented as of this encounter Visit Diagnoses Not on filedocumented in this encounter Care Teams Garment Worker Relationship Specialty Start Date End Date Alicja Maier [address] [place] [address] [address] [employer] [facility] [place] [address] PCP - General 01/26/16 09/28/18 Edita Garza, PHILL [address] [place] [address] PCP - General Internal Medicine 09/29/18 06/02/19 Edita Garza, LANDFILL GAS TECHNICIAN [address] [place] [address] PCP - General Internal Medicine 06/03/19 10/27/22 Garrett Funez MD [address] [place] [address] PCP - General Internal Medicine 10/28/22 04/04/23 Unknown, Miquel, PCP - General 04/05/23 08/30/23 Glenis Gloria, PHILL [address] [place] [address], 2[address] [place] [address] PCP - General Family Medicine 08/31/23 Hair Bowser MD [address] [place] [address] Historical LMR Provider 02/24/17 09/28/18 Rika Burnett, JACOB [address] [facility] [address] [place] [address] Historical LMR Provider 02/24/17 Jonelle Fenton NP [address] [place] [address] [address] [place] [phone] Historical LMR Provider 02/24/17 Travis Wilson MD [address] [place] [address], [address] [place] [address] Historical LMR Provider 02/24/17 09/28/18 Alicja Maier NP [address] [place] [address] 6 [place] [address] Historical LMR Provider 02/24/17 09/28/18 Hair Bowser MD [address] [place] [id number] Insurance Assigned Provider 08/06/17 11/18/18 David Lezama MD [address] [place] [address] Ophthalmology 04/17/19 Hair Bowser MD [address] [place] [phone] Insurance Assigned Provider 08/15/19 04/04/23 Lm Suarez MD [address] [place] [address], [address] [address] Urology 03/04/20 Hair Bowser MD [address] [place] [phone] Insurance Assigned Provider 08/15/19 05/14/23 David Alford DO [address] [place] [address] Lead Pourer Endocrinology 08/15/24 Nilda Oh MD [address] [place] [address], [facility] [address] [place] [address] Obstetrics and Gynecology 08/15/24 documented as of this encounter Additional Source Comments The information contained in this document represents components of the legal health record. It is not the complete legal health record.[facility]
--- OUTSIDE RECORDS SUMMARY | 2025-02-27 22:31 | XMS_ITS | Encounter Summary ---
Author Organization [facility] Address [address] [place] [address] Phone Care Team Providers Care Audio Visual Aide Name Role Phone Alicja Maier Primary Care Provider [phone] Hair Bowser MD Unavailable [phone] Rika Burnett RATE QUOTING OPERATOR Unavailable [phone] Jonelle Fenton RATE QUOTING OPERATOR Unavailable [phone] Travis Wilson MD Unavailable [phone] Alicja Maier RATE QUOTING OPERATOR Unavailable [phone] Hair Bowser MD Unavailable [phone] Edita Garza [facility] Primary Care Provider David Lezama MD Unavailable [phone] Edita Garza [facility] Primary Care Provider Hair Bowser MD Unavailable [phone] Lm Suarez MD Unavailable [phone] Garrett Funez MD Primary Care Provider [phone] Unknown, Unknown Primary Care Provider Hair Summers MD Unavailable [phone] Glenis Gloria [facility] Primary Care Provid er David Alford DO Unavailable Nilda Oh MD Unavailable Encounter Details Date Type Department Care Team (Late Contact Info) Description 10/28/2017 Ancillary Orders Virtual Department [address] [place] [address] Lm Suarez MD [facility] [facility] [place] [address] Simple renal cyst Social History Tobacco Use Types Packs/Day Years [...] 8:30 AM EST Office Visit [facility] [address] [place] [id number] David Alford DO [address] [place] [address] 08/16/2025 10:30 AM EDT Office Visit [facility] [address] [place] [address] [place] [address] Glenis Gloria, [facility] [address] [facility], 2nd [place] [address] documented as of this encounter Results * US Kidneys (12/07/2017 8:59 AM EDT) Anatomical Region Laterality Modality Abdomen, Kidney Ultrasound 12/07/2017 11:2 6 AM EDT Impressions 12/07/2017 11:37 AM EDT Simple right upper and multiple left parapelvic cysts. No worrisome cysts or masses in either kidney nor any acute pathology. POS [id number] Narrative 12/07/2017 11:37 AM EDT No comparison Both kidneys low normal size but normal contour. Right 9.4 x 4.2 cm. Left 9.4 x 4.1 cm. 9 mm simple cyst junction right mid and upper pole. 12 x 17, 12 x 14, and 16 x 17 mm simple parapelvic cysts on the left. No complex cysts or solid masses. No stones or hydronephrosis. No cortical scarring or perinephric fluid collections. Procedure Note Lenin Pearson MD - 12/07/2017 No comparison Both kidneys low normal size but normal contour. Right 9.4 x 4.2 cm. Left 9.4 x 4.1 cm. 9 mm simple cyst junction right mid and upper pole. 12 x 17, 12 x 14, and 16 x 17 mm simple parapelvic cysts on the left. No complex cysts or solid masses. No stones or hydronephrosis. No cortical scarring or perinephric fluid collections. IMPRESSION: Simple right upper and multiple left parapelvic cysts. No worrisome cystsor masses in either kidney nor any acute pathology. POS [id number] us Lm Suarez MD [facility] Final Result documented in this encounter Visit Diagnoses Diagnosis Simple renal cyst Acquired cyst of kidney Simple renal cyst Acquired cyst of kidney documented in this encounter Care Teams Audio Visual Aide Relationship Specialty Start Date End Date Alicja Maier [address] [place] [address] Dr [address] [facility] [place] [address] PCP - General 01/26/16 09/28/18 Edita Garza CNP [address] [place] [address] [email or web address] PCP - General Internal Medicine 09/29/18 06/02/19 Edita Garza, PHILL [address] [place] [address] PCP - General Internal Medicine 06/03/19 10/27/22 Garrett Funez MD [address] [place] [address] [email or web address] PCP - General Internal Medicine 10/28/22 04/04/23 Unknown, Miquel, PCP - General 04/05/23 08/30/23 Glenis Gloria, PHILL [address] [place] [address], 2[address] [place] [address] [email or web address] PCP - General Family Medicine 08/31/23 Hair Bowser MD [address] [place] [address] Historical LMR Provider 02/24/17 09/28/18 Rika Burnett, JACOB [address] [place] [address] [address] [place] [address] Historical LMR Provider 02/24/17 Jonelle Fenton, JACOB [address] [place] [address] [address] [place] [id number] Historical LMR Provider 02/24/17 Travis Wilson MD [address] [place] [address], [address] [place] [address] Historical LMR Provider 02/24/17 09/28/18 Alicja Maier NP [address] [place] [address] [address] [place] [address] [email or web address] Historical LMR Provider 02/24/17 09/28/18 Hair Bowser MD [address] [place] [address] [email or web address] Insurance Assigned Provider 08/06/17 11/18/18 David Lezama MD [address] [place] [address] Ophthalmology 04/17/19 Hair Bowser MD [address] [place] [address] [email or web address] Insurance Assigned Provider 08/15/19 04/04/23 Lm Suarez MD [address] [place] [address] [email or web address] Urology 03/04/20 Hair Bowser MD [address] [place] [address] [email or web address] Insurance Assigned Provider 08/15/19 05/14/23 David Alford DO [address] [place] [address] [email or web address] Oceanography Teacher Endocrinology 08/15/24 Nilda Oh MD [address] [place] [address] [address] [place] [address] [email or web address] Obstetrics and Gynecology 08/15/24 documented as of this encounter Additional Source Comments The information contained in this document represents components of the legal health record. It is not the complete legal health record.[facility]
--- OUTSIDE RECORDS SUMMARY | 2025-02-27 22:31 | XMS_ITS | Encounter Summary ---
Author Organization [facility] Address [address] [facility] [address] [place] [address] Phone Care Team Providers Care Time Study Statistician Name Role Phone Edita Garza [facility] Primary Care Provider David Lezama MD Unavailable [phone] Edita Garza [facility] Primary Care Provider Hair Bowser MD Unavailable [phone] Lm Suarez MD Unavailable [phone] Garrett Funez MD Primary Care Provider Unknown, Unknown Primary Care Provider Hair Summers MD Unavailable [phone] Glenis Gloria [facility] Primary Care Provid er David Alford DO Unavailable Nilda Oh MD Unavailable Encounter Details Date Type Department Care Team (Late st Contact Info) Description 03/09/2019 Procedure Pass [place] Admitting Dept - Virtual Department [address] [place], [place] [id number] Social History Tobacco Use Types Packs/Day Years Used Date Smoking Tobacco: Never Smokeless Tobacco: Never Alcohol Use Standard Drinks/Week Comments Yes 0 (1 standard drink = 0.6 oz pur e alcohol) once per month Comments No Sex and Gender Information Value [...] 8:30 AM EST Office Visit [facility] [address] [place] [address] [place] [address] David Alford DO [address] [place] [address] 08/16/2025 10:30 AM EDT Office Visit [facility] [address] [place] [address] [place] [address] Glenis Gloria CNP [address] [facility], 2nd [place] [address] documented as of this encounter Visit Diagnoses Not on filedocumented in this encounter Additional Health Concerns Assessment Noted Time PHQ-2 Depression Total Score: 1 10/13/19 19 8:44 AM EDT documented as of this encounter Care Teams Time Study Statistician Relationship Specialty Start Date End Date Edita Garza CNP [address] [place] [address] PCP - General Internal Medicine 09/29/18 06/02/19 Edita Garza CNP [address] [place] [address] PCP - General Internal Medicine 06/03/19 10/27/22 Garrett Funez MD [address] [place] [address] PCP - General Internal Medicine 10/28/22 04/04/23 Unknown, Miquel, PCP - General 04/05/23 08/30/23 Glenis Gloria CNP [address] [place] [address], [address] [place] [address] PCP - General Family Medicine 08/31/23 David Lezama MD [address] [place] [address] Ophthalmology 04/17/19 Hair Bowser MD [address] [place] [phone] Insurance Assigned Provider 08/15/19 04/04/23 Lm Suarez MD [address] [place] [address], [address] [address] Urology 03/04/20 Hair Bowser MD [address] [place] [address] Insurance Assigned Provider 08/15/19 05/14/23 David Alford DO [address] [place] [address] [facility] 08/15/24 Nilda Oh MD [address] [place] [address], [address] [place] [address] Obstetrics and Gynecology 08/15/24 documented as of this encounter Additional Source Comments The information contained in this document represents components of the legal health record. It is not the complete legal health record.[facility]
[2025-02-28 07:57] LABS: Chlamydia pneumoniae PCR Not Detected (Not Detect.); Coronavirus 229E PCR Not Detected (Not Detect.); Coronavirus HKU1 PCR Not Detected (Not Detect.); Coronavirus NL63 PCR Not Detected (Not Detect.); Coronavirus OC43 PCR Not Detected (Not Detect.); RSV PCR Not Detected (Not Detect.); Rhino/Enterovirus PCR Not Detected (Not Detect.)
[2025-02-28 08:26] LABS: Influenza A H1 PCR Not Detected (Not Detect.); Influenza A H1-2009 PCR Not Detected (Not Detect.); Influenza A H3 PCR Not Detected (Not Detect.); SARS-CoV-2 PCR Not Detected (Not Detect.)
== END 2025-02-27 12:57 | disposition home or self-care (01) ==
LOC: HO.LNP 12:56
PROVIDERS: PCP Registered Nurse; Visit Provider Physician Assistant Medical
DX: R09.89 Other specified symptoms and signs involving the circulatory and respiratory systems (principal); R05.9 Cough, unspecified
CPT/HCPCS: 87633; 87880; 99212

== ENCOUNTER 2025-03-04 08:46 | Outpatient (AMB) | payer MEDICARE, BC, SELFPAY ==
--- NOTE | 2025-03-04 08:54 | AM.OFFWIN_ITS ---
Intake Vital Signs 03/04/25 08:55 Height 5 ft 2.5 in Weight 136 lb BMI 24.5 BP 120/64 Blood Pressure Location Lt brachial Position Sitting Pulse 106 H Pulse Source Pulse Oximeter Temp 98.6 F Temp Source Oral Pulse Oximetry (%) 98 Oxygen Delivery Method Room Air Intake Visit Reasons: EP Cough, phlegm, vomitting Intake Note: pt presents with unresolved productive coughing, sinus congestion, sinus headache, decreased appetite for about a week. neg resp/strep from 02/27/25 Patient Tobacco Use Status: Never used Tobacco Allergies grass pollen Allergy (Mild, Verified 03/04/25 08:58) Rash Penicillins Allergy (Mild, Verified 03/04/25 08:58) Rash Medication List - Last Reconciled 03/04/25 by Shital Rod NP alendronate 70 mg PO QWEEK [Calcium + D 1 tab PO DAILY] estradiol (Yuvafem) mcg vaginal Do you need a note to return to daycare/school/sports/work: No HPI HPI Comments History of Present Illness Details 74 y/o Female patient who presents to [facility] walk in clinic today with c/o continuos productive cough, sinus congestion, sinus headache, decreased appetite for about a week. She was seen here on 02/27 and had negative resp/strep Panel. Pt has been using Home remedies with minimal relief. Denies fevers, chills, nausea or vomiting. PFSH Medical History (Updated 03/04/25 @ 09:28 by Shital Rod NP) Cough Urinary incontinence Anxiety Surgical History (Updated 06/17/21 @ 13:02 by Roxanne Osei RN) Hx of eye surgery Hx of sinus surgery H/O colonoscopy Social History Patient Tobacco Use Status: Never used Tobacco Physical Exam Vital Signs: Last Vital Signs Temp 98.6 F 03/04/25 08:55 Pulse 106 H 03/04/25 08:55 BP 120/64 03/04/25 08:55 Pulse Ox 98 03/04/25 08:55 Oxygen Delivery Method Room Air 03/04/25 08:55 BMI result Body Mass Index 24.5 Const General: no acute distress Nutritional Appearance: well nourished Orientation/consciousness: patient oriented x3 HEENT Head: Yes normocephalic Ears: external ears normal and TM abnormal with fluid behind the TM bilateral General nose exam: Normal external nose present Face and sinus: Yes sinuses nontender Mouth: moist mucous membranes Throat: Yes uvula midline Resp Effort & Inspection: normal respiratory effort and able to speak in complete sentences Auscultation: clear to auscultation bilaterally, no crackles, no rales, no rho nchi and no wheezes Cardio Heart sounds: S1 normal heart sound present and S2 normal heart sound present Neuro General: patient oriented x3 Assessment & Plan Assessment & Plan (1) Cough: Code(s): R05.9 - Cough, unspecified Qualifiers: Cough type: subacute Qualified Code(s): R05.2 - Subacute cough Plan: Ordered Azithromycin Ordered Cough medicine Rest and hydrate well with warm fluids. Acetaminophen for pain relief. Medications: New azithromycin 500 mg PO DAILY 3 tabs 0RF 3 days R05.2 - Subacute cough dextromethorphan polistirex ER (Delsym 12 hour) 10 mL PO Q12H 89 mL 0RF cough R05.2 - Subacute cough Coding Level of Care Code Est Pt Level 4 (12034) Diagnoses Subacute cough R05.2 Cough type: subacute Time Spent (min) 20
[2025-03-04 08:55] VITALS: BP 120/64; PULSE 106; TEMP 37; O2SAT 98; BMI 24.5
--- OUTSIDE RECORDS SUMMARY | 2025-03-04 09:20 | XMS_ITS | Clinical Summary ---
Author Organization [facility] Address [address] [place] [address] Phone Care Team Providers Care Chief Librarian Work With Blind Name Role Phone David Lezama MD Unavailable [phone] Lm Suarez MD Unavailable [phone] Glenis Gloria [facility] Primary Care Provid er David [...] A referral to a physical therapist in [place] will be initiated. If physical therapy does not yield satisfactory results, alternative treatments, including medications for overactive bladder, may be considered. Psoriasis of scalp 08/15/2024 Assessment & Plan (10/08/2024 12:25 PM EDT): She has been using a prescribed lotion and shampoo intermittently, which has made a difference. She was advised to continue using these treatments as needed and to follow up with her bean sorter in 01/2025. Post-menopausal atrophic vaginitis 09/14/2023 Overview (05/23/2024): Most prominent sx is urinary urgency, resolved in past with use of vaginal estrogen Assessment & Plan (10/08/2024 12:40 PM EDT): Recently resumed estradiol vaginal tablets. - Followed by [facility] SE[facility] DIRECT[facility] (Dr Oh). Assessment & Plan (05/23/2024 8:36 [...] next year. - Followed by GI through [facility] (Dr Butler). Assessment & Plan (08/31/2023 10:29 AM EDT): Last colonoscopy done in 2021. Always has polyps, most recent pathology not available. Followed by GI through [facility] (Dr Butler). Diverticulosis of colon 08/31/2023 Assessment & Plan (09/14/2023 11:18 PM EDT): The patient was counseled to adhere to a high-fiber diet. Assessment & Plan (09/14/2023 11:18 PM EDT): >>ASSESSMENT AND PLAN FOR DIVERTICULOSIS WRITTEN ON 03/04/2020 6:14 AM BY ELINA CHAMBERS, NUT CRACKER Stable, no recent diverticulitis. Hemorrhoids 08/31/2023 Assessment & Plan (09/14/2023 11:18 PM EDT): The patient was informed that wryy-tkj-pgwezxf medications, including hydrocortisone 1 percent combined with [...] some strategies, which as squeezing lemon or [place] into some water refrigerating it etc. Recommend [...] would be best to speak with the jira developer. I will give the patient information on [...] approach should be prescribed. The patient will pick up worker the prednisone it will be 20 mg [...] Encounters Date Type Department Care Team Description 03/01/2025 Orders Only [facility] Internal Medicine [address] [place] [address] Provider, MD Gautam 01/08/2025 3:46 PM EDT - 01/08/2025 5:47 PM EDT Emergency [facility] [address] [place] [address] Discharge Disposition: Home or Self Care 01/08/2025 Procedure Pass [facility], Ct Scan - [facility] [address] [place] [address] 01/08/2025 Telephone [facility] [address] [place] [address] Dr Emanuel, [place]AKESHIA [address] Glenis Gloria, PHILL Pain from Last 3 Months Immunizations Immunization [...] 8:30 AM EST Office Visit [facility] [address] [place] [address] David Alford DO [address] [place] [address] 08/16/2025 10:30 AM EDT Office Visit [facility] [address] [place] [address] Glenis Gloria, NUT CRACKER 170 [facility], 2nd [place] [address] [email or web address] Health Maintenance Due Date Last Done Comments [...] Procedure Name Priority Date/Time Associated Diagnosis Comments OUTSIDE LAB Routine 03/01/2025 6:[address] ABDOMEN/PELVIS WITH CONTRAST Routine 01/08/2025 5:03 [...] Recently Relevant to Health Maintenance Results * Outside Lab (03/01/2025 6:55 AM EDT) us Historical Provider LAB BLOOD ORDERABLES Qian l Result * CT ABDOMEN/PELVIS WITH CONTRAST (01/08/2025 5:03 PM EDT) [facility] PILE DRIVER OPERATOR BARGE MOUNTED COMMENT Acute uncomplicated colonic diverticulitis. [facility] IM RECOMMENDATION COMMENT Acute uncomplicated colonic diverticulitis; Expansile intermediate density endometrium 9 mm [facility] Anatomical Region Laterality Modality Abdomen, Pelvis Computed Tomogra phy 01/08/2025 5:20 PM EDT Impressions 01/08/2025 5:26 PM EDT 1. Acute uncomplicated colonic diverticulitis. 2. Expansile intermediate density along the endometrium measuring 9 mm, indeterminate, may be due to underlying lesion or hyperplasia. Outpatient pelvic ultrasound would better help assess. A clinically significant result was initiated on 01/08/2025 5:24 PM, Message ID [id number]. Narrative 01/08/2025 5:[address] ABDOMEN/PELVIS [...] was initiated on 01/08/2025 5:24 PM, MessageID [id number]. Sada Toro PA-C IMG CT ABD/PELVIS Final Resu lt * (ABNORMAL) Urinalysis w/reflex Urine Culture (01/08/2025 3:55 PM EDT) COLOR Yellow Yellow [facility] CLARITY HAZY [facility] GLUCOSE Negative Negative [facility] BILI Negative Negative [facility] KETONES 1+(A) Negative [facility] SPECIFIC GRAVITY 1.025 1.005 - 1.030 [facility] BLOOD Trace(A) Negative [facility] PH 6.0 5.0 - 8.0 [facility] Protein-UA Negative Negative [facility] NITRITE Negative Negative [facility] Leukocyte esterase, ur 1+(A) Negative [facility] Urine (Urine) 01/08/2025 3:5 5 PM EDT 01/08/2025 5:47 PM EDT Jordy Salmon MD URINE ORDERABLES Final Result Performing Organization Address City/[facility]/ZIP Co de Phone Number [address] [address] * (ABNORMAL) Urine Culture (01/08/2025 3:55 PM EDT) Special Requests None Reflexed from [id number] 01/08/2025 6:07 PM EDT [facility] Urine Culture >100,000 colony forming units per mL ESCHERICHIA COLI(A) 01/10/2025 8:15 AM EDT [facility] Urine 01/08/2025 3:55 PM EDT 01/08/2025 5:47 [...] Susceptible Comment: Jordy Salmon MD MICROBIOLOGY - [facility] ORDERABLES Final Result [address] [address] * (ABNORMAL) Urine sediment (01/08/2025 3:55 PM EDT) WBC 21-49(A) NONE SEEN /hpf [facility] RBC 3-5(A) NONE SEEN /hpf [facility] URINE EPITHELIAL 21-49(A) NONE SEEN [facility] MUCUS 2+(A) NONE SEEN /hpf [facility] BACTERIA 3+(A) NONE SEEN /hpf [facility] 01/08/2025 3:55 PM EDT 01/08/2025 5:47 PM EDT Jordy Salmon MD URINE ORDERABLES Final Result Performing Organization Address [facility] Co de Phone Number [address] [address] * (ABNORMAL) LFTs (hepatic panel) (01/08/2025 2:12 PM EDT) ALKALINE PHOSPHATASE 78 39 - 117 U/L [facility] TOTAL BILIRUBIN 0.9 0.0 - 1.2 mg/dL [facility] DIRECT BILIRUBIN 0.3(H) 0.0 - 0.2 mg/dL [facility] Bilirubin (Indirect) 0.6 0 - 1.5 mg/dL [facility] AST 16 0 - 37 U/L [facility] ALT 12 0 - 40 U/L [facility] TOTAL PROTEIN 7.7 6.5 - 8.0 g/dL [facility] ALBUMIN 4.1 3.9 - 4.8 g/dL [facility] GLOBULIN 3.6 1 - 4.8 g/dL [facility] A/G Ratio 1.14 1.00 - 4.80 RATIO [facility] Blood 01/08/2025 2:12 PM EDT 01/08/2025 2:28 PM EDT Jordy Salmon MD LAB BLOOD ORDERAB LES Final Result Performing Organization Address [facility]/ZIP Co de Phone Number [address] [address] * (ABNORMAL) CBC and differential (01/08/2025 2:12 PM EDT) WBC 8.02 4.00 - 11.00 K/uL [facility] RBC 4.59 4.00 - 5.20 M/uL [facility] HGB 14.2 12.0 - 16.0 g/dL [facility] HCT 41.6 36.0 - 46.0 % [facility] PLT 146(L) 150 - 450 K/uL [facility] MCV 90.6 80.0 - 100.0 fL [facility] MCH 30.9 27.0 - 31.0 pg [facility] MCHC 34.1 32.0 - 36.0 g/dL [facility] RDW 12.4 11.5 - 14.5 % [facility] MPV 10.3 8.4 - 12.0 fL [facility] NRBC 0.00 0.00 /100 WBCs [facility] ABSOLUTE NRBC 0.00 0.00 K/uL [facility] DIFF METHOD Auto [facility] NEUTS 79.9(H) 48.0 - 76.0 % [facility] LYMPHS 11.2(L) 18.0 - 41.0 % [facility] MONOS 8.1 4.0 - 11.0 % [facility] EOS 0.4 0.0 - 5.0 % [facility] BASOS 0.2 0.0 - 1.5 % [facility] Granulocytes, immature (%) 0.2 0.0 - 0.9 % [facility] ABSOLUTE NEUTS 6.40 1.92 - 7.60 K/uL [facility] ABSOLUTE LYMPHS 0.90 0.72 - 4.10 K/uL [facility] ABSOLUTE MONOS 0.65 0.16 - 1.10 K/uL [facility] ABSOLUTE EOS 0.03 0.00 - 0.50 K/uL [facility] ABSOLUTE BASOS 0.02 0.00 - 0.15 K/uL [facility] Granulocytes, immature 0.02 0.00 - 0.09 K/uL [facility] Blood 01/08/2025 2:12 PM EDT 01/08/2025 2:28 PM EDT us Jordy Salmon MD LAB BLOOD ORDERAB LES Final Result [facility] [address] [place] [address] * (ABNORMAL) C-Reactive Protein (01/08/2025 2:12 PM EDT) [facility] C REACTIVE PROTEIN 109.0(H) 0.0 - 4.0 mg/L [facility] 01/08/2025 2:12 PM EDT 01/08/2025 2:28 PM EDT Jordy Salmon MD LAB BLOOD ORDERAB LES Final Result Performing Organization Address City/[facility]/ZIP Co de Phone Number [address] [address] * Lipase (01/08/2025 2:12 PM EDT) [facility] LIPASE 20 16 - 63 U/L [facility] Blood 01/08/2025 2:12 PM EDT 01/08/2025 2:28 PM EDT Jordy Salmon MD LAB BLOOD ORDERAB LES Final Result Performing Organization Address City/[facility] Co de Phone Number [address] [address] * (ABNORMAL) Basic metabolic panel (01/08/2025 2:12 PM EDT) [facility] SODIUM 138 133 - 146 mmol/L [facility] CHLORIDE 102 96 - 108 mmol/L [facility] POTASSIUM 4.4 3.3 - 5.1 mmol/L [facility] CO2 25 21 - 35 mmol/L [facility] BUN 17 6 - 19 mg/dL [facility] CREATININE 0.70 0.5 - 1.5 mg/dL [facility] GLUCOSE 107(H) 70 - 99 mg/dL [facility] CALCIUM 9.0 8.4 - 10.3 mg/dL [facility] EGFR 90 >59 mL/min/1.7 3m2 [facility] Comment:Estimated glomerular filtration rate calculated using the CKD-EPI refit equation. ANION GAP 15 10 - 20 mmol/L [facility] Blood 01/08/2025 2:12 PM EDT 01/08/2025 2:28 PM EDT us Jordy Salmon MD LAB BLOOD ORDERAB LES Final Result Performing Organization Address [facility] Co de Phone Number [address] [address] * (ABNORMAL) Lipid panel (04/13/2024 8:36 AM EST) HDL 64 mg/dL [facility] Comment: Interpretation <40 mg/dL: Low HDL cholesterol (major risk factor for CHD) Greater than or equal to 60 mg/dL: High HDL cholesterol ( negative risk factor for CHD) HDL - cholesterol is affected by a number of factors, e.g. smoking, excerise, hormones, sex and age. CHOLESTEROL 169 0 - 240 mg/dL [facility] TRIGLYCERIDES 90 30 - 160 mg/dL [facility] LDL 87 50 - 129 mg/dL [facility] Comment: LDL levels in terms of risk for coronary heart disease: <100 mg/dL: Optimal 100-129 mg/dL: Near or above optimal 130-159 mg/dL: Borderline high 160-189 mg/dL: High >190 mg/dL: Very High CARDIAC RISK RATIO 2.6(L) 3.3 - 4.4 C [facility] Blood 04/13/2024 8:36 AM EST 04/13/2024 8:43 AM EST us Glenis Gloria CNP LAB BLOOD ORDERABLES Final Result Performing Organization Address [facility]/ZIP Co de Phone Number [address] [address] * HM DEXA SCAN (10/20/2022) us Elina Chambers [facility] HEALTH MAINTENANCE Laureano matthew Result - Final * Hepatitis C antibody, qualitative (02/03/2022 9:20 AM EDT) HCV NON-REACTIV E NON-REACTI VE [facility] Blood 02/03/2022 9:20 AM EDT 02/03/2022 9:25 AM EDT Alicja Maier NP LAB BLOOD ORDERABLES Final Resu lt [facility] [address] [place] [address] * COLONOSCOPY FOR RESULT ENTRY ONLY (06/24/2021) Colonoscopy 5 yr recall us Historical Provider MD HEALTH MAINTENANCE Final Result from Last 3 Months or Most Recently Relevant to Health Maintenance Insurance [place] [id number] [facility] MEDICARE PART A & B [facility] MEDICARE PART A & B [facility] MEDICARE PART A & [place] [address] [place] [address] MEDICARE PART A & B MEDICARE PART A & B MEDICARE PART A & B MEDICARE PART A & B [facility] MEDICARE PART A & B [facility] Advance Directives For more information, please contact: [phone] (9AM - 5PM [place], Tuesday-Tuesday) * Full Code (Presumed) (Latest Code Status on File) Date Activated Date Inactivated Comments 03/09/2019 6:16 AM 03/09/2019 12:17 PM Care Teams Chief Librarian Work With Blind Relationship Specialty Start Date End Date Glenis GloriaPHILL [address] [place] [address], 2nd [place] [address] PCP - General Family Medicine 08/31/23 David Lezama MD [address] [place] [address] Ophthalmology 04/17/19 Lm Suarez MD [address] [place] [address], [address] [place] [address] Urology 03/04/20 David Alford DO [address] [place] [address] Structural Test Engineer Endocrinology 08/15/24 Nilda Oh MD 22 [facility], [address] [place] [address] Obstetrics and Gynecology 08/15/24 Additional Source Comments The information contained in this document represents components of the legal health record. It is not the complete legal health record.[facility]
--- OUTSIDE RECORDS SUMMARY | 2025-03-04 09:20 | XMS_ITS | Encounter Summary ---
Author Organization [facility] Address [address] [facility] [address] [place] [address] Phone Care Team Providers Care Telecommunications Project Manager Name Role Phone David Lezama MD Unavailable [phone] Edita Garza [facility] Primary Care Provider Hair Bowser MD Unavailable [phone] Lm Suarez MD Unavailable [phone] Garrett Funez MD Primary Care Provider Unknown, Unknown Primary Care Provider Hair Summers MD Unavailable [phone] Glenis Gloria [facility] Primary Care Provid er David Alford DO Unavailable Nilda Oh MD Unavailable Encounter Details Date Type Department Care Team (Latest Contact Info) Description 01/22/2020 Transcribe Orders Virtual Department [address] [place] [address] Lm Suarez MD [address] [facility], [address] [place], [place] [id number] [email or web address] Cyst of kidney, acquired (Primary [...] 8:30 AM EST Office Visit [facility] [address] [place] [address] [place] [address] David Alford DO [address] [place] [address] 08/16/2025 10:30 AM EDT [facility] [address] [place] [address] [place] [address] Glenis Gloria, TRIAL LAWYER [address] [facility], 2nd [place] [address] documented as of this encounter Results * [...] is suggestive of fattyinfiltration. Lm Suarez MD [facility] US RENAL Final Result documented in this encounter Visit Diagnoses Diagnosis Cyst of kidney, acquired- Primary Acquired cyst of kidney Cyst of kidney, acquired Acquired cyst of kidney documented in this encounter Additional Health Concerns Assessment Noted Time PHQ-2 Depression Total Score: 1 10/16/19 20 9:32 AM EDT documented as of this encounter Care Teams Telecommunications Project Manager Relationship Specialty Start Date End Date Edita Garza CNP [address] [place] [address] PCP - General Internal Medicine 06/03/19 10/27/22 Garrett Funez MD [address] [place] [address] [email or web address] PCP - General Internal Medicine 10/28/22 04/04/23 Unknown, Miquel, PCP - General 04/05/23 08/30/23 Faizan Glenisarmando Eldridge CNP [address] [place] [address], 2nd [place] [address] [email or web address] PCP - General Family Medicine 08/31/23 David Lezama MD [address] [place] [address] Ophthalmology 04/17/19 Hair Bowser MD [address] [place] [address] [email or web address] Insurance Assigned Provider 08/15/19 04/04/23 Lm Suarez MD [address] [place] [address], [address] [place] [address] [email or web address] Urology 03/04/20 Hair Bowser MD [address] [place] [address] [email or web address] Insurance Assigned Provider 08/15/19 05/14/23 David Alford DO [address] [place] [address] [email or web address] Sprinkler Worker Endocrinology 08/15/24 Nilda Oh MD [address] [place] [address], [address] [place] [address] Obstetrics and Gynecology 08/15/24 documented as of this encounter Additional Source Comments The information contained in this document represents components of the legal health record. It is not the complete legal health record.[facility]
--- OUTSIDE RECORDS SUMMARY | 2025-03-04 09:20 | XMS_ITS | Encounter Summary ---
Author Organization [facility] Address [address] [place] [address] Phone Care Team Providers Care Tactical Response Group Officer Name Role Phone David Lezama MD Unavailable Lm Suarez MD Unavailable [phone] Glenis Gloria [facility] Primary Care Provid er David Alford DO Unavailable Nilda Oh MD Unavailable Encounter Details Date Type Department Care Team (Late st Contact Info) Description 01/08/2025 Procedure Pass [facility], Ct Scan - [address] [address] Social History Tobacco Use Types Packs/Day Years [...] 1:04 PM SYDNEET Flaquita Galeana RN * [facility] Suicide Severity Rating Scale (Screener/Recent Self-Report) Question [...] 8:30 AM EST Office Visit [facility] [address] [place] [address] David Alford DO 22 [place] [address] 08/16/2025 10:30 AM EDT [facility] [address] [place] [address] [place] [address] Glenis Gloria CNP [address] [place] [address] documented as of this encounter Visit Diagnoses Not on filedocumented in this encounter Additional Health Concerns Assessment Noted Time PHQ-2 Depression Total Score: 0 08/16/19 25 8:55 AM EDT documented as of this encounter Care Teams Tactical Response Group Officer Relationship Specialty Start Date End Date Glenis Gloria CNP [address] [place] [address] PCP - General Family Medicine 08/31/23 David Lezama MD [address] [place] [address] Ophthalmology 04/17/19 Lm Suarez MD [address] [place] [address], [address] [place] [address] Urology 03/04/20 David Alford DO [address] [place] [address] [email or web address] Tractor Mechanic Helper Endocrinology 08/15/24 Nilda Oh MD [address] [place] [address], [facility] [address] [place] [address] [email or web address] Obstetrics and Gynecology 08/15/24 documented as of this encounter Additional Source Comments The information contained in this document represents components of the legal health record. It is not the complete legal health record.[facility]
--- OUTSIDE RECORDS SUMMARY | 2025-03-04 09:20 | XMS_ITS | Encounter Summary ---
Author Organization [facility] Address [address] [facility] [address] [place] [address] Phone Care Team Providers Care Retail Department Manager Name Role Phone Hair Bowser MD Unavailable Edita Garza [facility] Primary Care Provider David Lezama MD Unavailable Edita Garza [facility] Primary Care Provider Hair Bowser MD Unavailable Lm Suarez MD Unavailable [phone] Garrett Funez MD Primary Care Provider Unknown, Unknown Primary Care Provider Hair Summers MD Unavailable [phone] Glenis Gloria [facility] Primary Care Provid er David Alford DO Unavailable Nilda Oh MD Unavailable Encounter Details Date Type Department Care Team (Latest Contact Info) Description 10/03/2018 Transcribe Orders Virtual Department [address] [place] [address] Tayler Ramos [place] [address] [phone] [email or web address] Cyst of kidney, acquired (Primary Dx) Social [...] AM EST Office Visit [facility] [address] [place] [address] [place] [address] David Alford DO [address] [place] [address] 08/16/2025 10:30 AM EDT Office Visit [facility] [address] [place] [address] [place] [address] Glenis Gloria, [facility] [address] [facility], 2nd [place] [address] [email or web address] documented as of this encounter Results * US Kidneys (12/25/2018 10:05 AM EDT) Anatomical Region Laterality Modality Abdomen, Kidney Ultrasound 12/25/2018 4:28 PM EDT Impressions 12/25/2018 4:31 PM EDT No renal calculi. Normal renal size and cortical echogenicity. Several LEFT renal parapelvic cysts, unchanged compared with the prior study. POS - [id number] Narrative 12/25/2018 4:31 PM EDT EXAM: US [...] unchanged compared with the priorstudy. POS - [id number] Tayler STRINGER IMG US RENAL Final Resu lt documented in this encounter Visit Diagnoses Diagnosis Cyst of kidney, acquired- Primary Acquired cyst of kidney Cyst of kidney, acquired Acquired cyst of kidney documented in this encounter Care Teams Retail Department Manager Relationship Specialty Start Date End Date Edita Garza CNP [address] [place] [address] PCP - General Internal Medicine 09/29/18 06/02/19 Edita Garza CNP [address] [place] [address] [email or web address] PCP - General Internal Medicine 06/03/19 10/27/22 Garrett Funez MD 40 [place] [address] [email or web address] PCP - General Internal Medicine 10/28/22 04/04/23 Unknown, Miquel, PCP - General 04/05/23 08/30/23 Glenis Gloria, PHILL [address] [place] [address], 2[address] [place] [address] [email or web address] PCP - General Family Medicine 08/31/23 Hair Bowser MD [address] [place] [address] Insurance Assigned Provider 08/06/17 11/18/18 David Lezama MD [address] [place] [address] Ophthalmology 04/17/19 Hair Bowser MD [address] [place] [address] [email or web address] Insurance Assigned Provider 08/15/19 04/04/23 Lm Suarez MD [address] [place] [id number] [email or web address] Urology 03/04/20 Hair Bowser MD [address] [place] [address] [email or web address] Insurance Assigned Provider 08/15/19 05/14/23 David Alford DO [address] [place] [address] [email or web address] Purse Seining Hand Endocrinology 08/15/24 Nilda Oh MD [address] [place] [address] [address] [place] [address] [email or web address] Obstetrics and Gynecology 08/15/24 documented as of this encounter Additional Source Comments The information contained in this document represents components of the legal health record. It is not the complete legal health record.[facility]
--- OUTSIDE RECORDS SUMMARY | 2025-03-04 09:20 | XMS_ITS | Encounter Summary ---
Author Organization [facility] Address [address] [place] [address] Phone Care Team Providers Care Cyanide Case Hardener Name Role Phone David Lezama MD Unavailable [phone] Edita Garza [facility] Primary Care Provider Hair Bowser MD Unavailable [phone] Lm Suarez MD Unavailable [phone] Garrett Funez MD Primary Care Provider Unknown, Unknown Primary Care Provider Hair Summers MD Unavailable [phone] Glenis Gloria [facility] Primary Care Provid er David Alford DO Unavailable Nilda Oh MD Unavailable Encounter Details Date Type Department Care Team (Latest Contact Info) Description 03/05/2021 Transcribe Orders Virtual Department 30 [place] [address] Lm Suarez MD [address] [facility] [place], [place] [id number] [email or web address] Cyst of kidney, acquired (Primary Dx) Social [...] 8:30 AM EST Office Visit [facility] [address] [place] [address] [place] [address] David Alford DO 22 [place] [address] [email or web address] 08/16/2025 10:30 AM EDT Office Visit [facility] [address] [place] [address] [place] [address] Glenis Gloria, PHILL 170 [facility], 2nd [place] [address] [email or web address] documented as of this encounter Results * [...] No acute findings. us Lm Suarez MD [facility] Final Result documented in this encounter Visit Diagnoses Diagnosis Cyst of kidney, acquired- Primary Acquired cyst of kidney Cyst of kidney, acquired Acquired cyst of kidney documented in this encounter Additional Health Concerns Assessment Noted Time PHQ-2 Depression Total Score: 0 12/03/19 9:13 AM EDT documented as of this encounter Care Teams Cyanide Case Hardener Relationship Specialty Start Date End Date Edita Garza CNP 40 [place] [address] PCP - General Internal Medicine 06/03/19 10/27/22 Garrett Funez MD 40 [place] [address] PCP - General Internal Medicine 10/28/22 04/04/23 Unknown, Miquel, PCP - General 04/05/23 08/30/23 Glenis Gloria CNP [address] [place] [address], 2nd [place] [address] PCP - General Family Medicine 08/31/23 David Lezama MD [address] [place] [address] Ophthalmology 04/17/19 Hair Bowser MD [address] [place] [address] [email or web address] Insurance Assigned Provider 08/15/19 04/04/23 Lm Suarez MD [address] [place] [address] [email or web address] Urology 03/04/20 Hair Bowser MD [address] [place] [address] [email or web address] Insurance Assigned Provider 08/15/19 05/14/23 David Alford DO 22 [place] [address] Cement Truck Loader Endocrinology 08/15/24 Nilda Oh MD [address] [place] [address] [email or web address] Obstetrics and Gynecology 08/15/24 documented as of this encounter Additional Source Comments The information contained in this document represents components of the legal health record. It is not the complete legal health record.[facility]
--- OUTSIDE RECORDS SUMMARY | 2025-03-04 09:21 | XMS_ITS | Encounter Summary ---
Author Organization [facility] Address [address] [place] [address] Phone Care Team Providers Care Clerk Carrier Name Role Phone Alicja Maier Primary Care Provider [phone] Hair Bowser MD Unavailable [phone] Rika Burnett [employer]AISER TIMBER Unavailable [phone] Jonelle Fenton [employer]BER Unavailable [phone] Travis Wilson MD Unavailable [phone] Alicja Maier [employer]BER Unavailable [phone] Hair Bowser MD Unavailable [phone] Edita Garza [facility] Primary Care Provider David Lezama MD Unavailable [phone] Edita Garza [facility] Primary Care Provider Hair Bowser MD Unavailable [phone] Lm Suarez MD Unavailable [phone] Garrett Funez MD Primary Care Provider [phone] Unknown, Unknown Primary Care Provider Hair Summers MD Unavailable [phone] Glenis Gloria [facility] Primary Care Provid er David Alford DO Unavailable Nilda Oh MD Unavailable Encounter Details Date Type Department Care Team (Late Contact Info) Description 03/18/2017 Procedure Pass OR Admitting Dept - Virtual Department [address] [place] [address] Social History Tobacco Use Types Packs/Day Years [...] 8:30 AM EST Office Visit [facility] [address] [place] [address] [place] [address] David Alford DO [address] [place] [address] 08/16/2025 10:30 AM EDT Office Visit [facility] [address] [place] [address] [place] [address] Glenis Gloria, PHILL 170 [facility], 2nd [place] [address] documented as of this encounter Visit Diagnoses Not on filedocumented in this encounter Care Teams Clerk Carrier Relationship Specialty Start Date End Date Alicja Maier [address] [place] [address] [address] Rug Backing Stenciler [facility] [place] [address] PCP - General 01/26/16 09/28/18 Edita Garza, PHILL [address] [place] [address] [email or web address] PCP - General Internal Medicine 09/29/18 06/02/19 Edita Garza, DESIGN/ANIMATION INSTRUCTOR 40 [place] [address] PCP - General Internal Medicine 06/03/19 10/27/22 Garrett Funez MD 40 [place] [address] [email or web address] PCP - General Internal Medicine 10/28/22 04/04/23 Unknown, Miquel, PCP - General 04/05/23 08/30/23 Glenis Gloria, PHILL [address] [place] [address], 2nd [place] [address] [email or web address] PCP - General Family Medicine 08/31/23 Hair Bowser MD 40 [place] [address] [email or web address] Historical LMR Provider 02/24/17 09/28/18 Rika Burnett, JACOB [address] [facility] [address] [place] [address] Historical LMR Provider 02/24/17 Jonelle Fenton NP [address] [place] [address] 101 [place] [phone] Historical LMR Provider 02/24/17 Travis Wilson MD [address] [place] [address], [address] [place] [address] Historical LMR Provider 02/24/17 09/28/18 Alicja Maier NP [address] [place] [address] 6 [place] [address] Historical LMR Provider 02/24/17 09/28/18 Hair Bowser MD [address] [place] [address] Insurance Assigned Provider 08/06/17 11/18/18 David Lezama MD [address] [place] [address] Ophthalmology 04/17/19 Hair Bowser MD [address] [place] [address] Insurance Assigned Provider 08/15/19 04/04/23 Lm Suarez MD [address] [place] [address], [address] [address] Urology 03/04/20 Hair Bowser MD [address] [place] [address] Insurance Assigned Provider 08/15/19 05/14/23 David Alford DO [address] [place] [address] Corporate Travel Expert Endocrinology 08/15/24 Nilda Oh MD [address] [place] [address], [facility] [address] [place] [address] [email or web address] Obstetrics and Gynecology 08/15/24 documented as of this encounter Additional Source Comments The information contained in this document represents components of the legal health record. It is not the complete legal health record.[facility]
--- OUTSIDE RECORDS SUMMARY | 2025-03-04 09:21 | XMS_ITS | Encounter Summary ---
Author Organization [facility] Address [address] [facility] [address] [place] [address] Phone Care Team Providers Care Yarn Dyer Name Role Phone Edita Garza [facility] Primary Care Provider David Lezama MD Unavailable [phone] Edita Garza [facility] Primary Care Provider Hair Bowser MD Unavailable Lm Suarez MD Unavailable [phone] Garrett Funez MD Primary Care Provider [phone] Unknown, Unknown Primary Care Provider Hair Summers MD Unavailable [phone] Glenis Gloria [facility] Primary Care Provid er David Alford DO Unavailable Nilda Oh MD Unavailable Encounter Details Date Type Department Care Team (Late st Contact Info) Description 03/09/2019 Procedure Pass OR Admitting Dept - Virtual Department 30 [place], [place] [id number] Social History Tobacco Use Types Packs/Day Years [...] AM EST Office Visit [facility] [address] [place] [address] [place] [address] David Alford DO 22 [place] [address] 08/16/2025 10:30 AM EDT Office Visit [facility] [address] [place] [address] [place] [address] Glenis Gloria CNP [address] [facility], 2nd [place] [address] documented as of this encounter Visit Diagnoses Not on filedocumented in this encounter Additional Health Concerns Assessment Noted Time PHQ-2 Depression Total Score: 1 10/13/19 19 8:44 AM EDT documented as of this encounter Care Teams Yarn Dyer Relationship Specialty Start Date End Date Edita Garza CNP 40 [place] [address] PCP - General Internal Medicine 09/29/18 06/02/19 Edita Garza CNP 40 [place] [address] PCP - General Internal Medicine 06/03/19 10/27/22 Garrett Funez MD 40 [place] [address] PCP - General Internal Medicine 10/28/22 04/04/23 Unknown, Miquel, PCP - General 04/05/23 08/30/23 Glenis Gloria CNP [address] [place] [address], 2nd [place] [address] PCP - General Family Medicine 08/31/23 David Lezama MD [address] [place] [address] Ophthalmology 04/17/19 Hair Bowser MD [address] [place] [address] Insurance Assigned Provider 08/15/19 04/04/23 Lm Suarez MD [address] [place] [address], [address] [address] Urology 03/04/20 Hair Bowser MD [address] [place] [address] Insurance Assigned Provider 08/15/19 05/14/23 David Alford DO 22 [place] [address] Business Management Manager Endocrinology 08/15/24 Nilda Oh MD [address] [place] [address], [address] [place] [address] Obstetrics and Gynecology 08/15/24 documented as of this encounter Additional Source Comments The information contained in this document represents components of the legal health record. It is not the complete legal health record.[facility]
--- OUTSIDE RECORDS SUMMARY | 2025-03-04 09:21 | XMS_ITS | Patient Health Record ---
Author Organization [facility] Address [address] [place] [address] Care Team Providers Care Certified Income Tax Preparer Name Role Phone Edita Garza Primary Care Provider Shoaib Escalera Unavailable [phone] Allergies Allergen (clinical drug ingredient) Drug/Non Drug [...] Problem Screening for malignant neoplasm of colon (589013037) Encounter for screening for malignant neoplasm of colon (Z12.11) Active confirmed Problem History of adenomatous polyp of colon (690318633) History of adenomatous polyp of colon (Z86.010) Active confirmed Problem Screening for malignant neoplasm of rectum (496012176) Encounter for screening for malignant neoplasm of rectum (Z12.12) Active confirmed Problem Preprocedural examination (964999555321853) Preprocedural examination (Z01.818) Active confirmed Problem Diverticulosis of colon (715040803) Diverticulosis of colon (K57.30) Active confirmed Plan Of Treatment Pending Test Test Name Order Date Pathology 06/24/2021 Future Test Test Name Order Date COLONOSCOPY 11/18/2015 COLONOSCOPY 05/19/2021 Insurance Providers Payer Name Payer Address Payer Phone Subscriber Number Group Number Insured Name Patient Relationship to Insured Coverage Start Date Coverage End Date MEDICARE OF [place] [address] [place] [address] [id number] TERESO SEGUNDO Self - patient is the insured [facility] [address] [place], [place] [id number] TERESO SEGUNDO Self - patient is the [...] moderate sigmoid diverticulosis, and internal hemorrhoids Denies MT,DM,CVA,Lung disease,renal dise ase Anxiety Urinary incontinence Colonoscopy in 01/2016 with removal of sm all tubular adenomas Surgical History Surgery Date(Month/Year) Sinus surgery Left eye retina and cataract [id number]
--- OUTSIDE RECORDS SUMMARY | 2025-03-04 09:21 | XMS_ITS | Encounter Summary ---
Author Organization [facility] Address [address] [facility] [facility] [address] [place] [address] Phone Care Team Providers Care Juvenile Justice Officer Name Role Phone Alicja Maier Primary Care Provider [phone] Hair Bowser MD Unavailable [phone] Rika Burnett DIE FORGER Unavailable [phone] Jonelle Fenton DIE FORGER Unavailable [phone] Travis Wilson MD Unavailable [phone] Alicja Maier DIE FORGER Unavailable [phone] Hair Bowser MD Unavailable [phone] Edita Garza [facility] Primary Care Provider David Lezama MD Unavailable [phone] Edita Garza [facility] Primary Care Provider Hair Bowser MD Unavailable [phone] Lm Suarez MD Unavailable [phone] Garrett Funez MD Primary Care Provider [phone] Unknown, Unknown Primary Care Provider Hair Summers MD Unavailable [phone] Glenis Gloria [facility] Primary Care Provid er David Alford DO Unavailable Nilda Oh MD Unavailable Encounter Details Date Type Department Care Team (Late Contact Info) Description 10/28/2017 Ancillary Orders Virtual Department 30 [place] [address] Lm Suarez MD [facility], [address] [place] [address] Simple renal cyst Social History Tobacco Use [...] 8:30 AM EST Office Visit [facility] [address] [place] [address] David Alford DO 22 [place] [address] 08/16/2025 10:30 AM EDT Office Visit [facility] [address] [place] [address] [place] [address] Glenis Gloria, [facility] 170 [facility], 2nd [place] [address] documented as of this encounter Results * US Kidneys (12/07/2017 8:59 AM EDT) Anatomical Region Laterality Modality Abdomen, Kidney Ultrasound 12/07/2017 11:2 6 AM EDT Impressions 12/07/2017 11:37 AM EDT Simple right upper and multiple left parapelvic cysts. No worrisome cysts or masses in either kidney nor any acute pathology. POS [id number] Narrative 12/07/2017 11:37 AM EDT No comparison [...] either kidney nor any acute pathology. POS [id number] us Lm Suarez MD [facility] Final Result documented in this encounter Visit Diagnoses Diagnosis Simple renal cyst Acquired cyst of kidney Simple renal cyst Acquired cyst of kidney documented in this encounter Care Teams Juvenile Justice Officer Relationship Specialty Start Date End Date Alicja Maier [address] [place] [address] Dr [address] Plant Health Manager [facility] [place] [address] PCP - General 01/26/16 09/28/18 Edita Garza CNP 40 [place] [address] [email or web address] PCP - General Internal Medicine 09/29/18 06/02/19 Edita Garza, PHILL 40 [place] [address] PCP - General Internal Medicine 06/03/19 10/27/22 Garrett Funez MD 40 [place] [address] [email or web address] PCP - General Internal Medicine 10/28/22 04/04/23 Unknown, Miquel, PCP - General 04/05/23 08/30/23 Glenis Gloria, PHILL [address] [place] [address], 2nd [place] [address] [email or web address] PCP - General Family Medicine 08/31/23 Hair Bowser MD 40 [place] [address] Historical LMR Provider 02/24/17 09/28/18 Rika Burnett, JACOB [address] [place] [address] [address] [place] [address] Historical LMR Provider 02/24/17 Jonelle Fenton, JACOB [address] [place] [address] [address] [place] [phone] Historical LMR Provider 02/24/17 Tarvis Wilson MD [address] [place] [address], [address] [place] [address] Historical LMR Provider 02/24/17 09/28/18 Alicja Maier NP [address] [place] [address] 6 [place] [address] [email or web address] Historical LMR Provider 02/24/17 09/28/18 Hair Bowser MD [address] [place] [address] [email or web address] Insurance Assigned Provider 08/06/17 11/18/18 David Lezama MD [address] [place] [address] Ophthalmology 04/17/19 Hair Bowser MD [address] [place] [address] [email or web address] Insurance Assigned Provider 08/15/19 04/04/23 Lm Suarez MD [address] [place] [address] [email or web address] Urology 03/04/20 Hair Bowser MD [address] [place] [address] [email or web address] Insurance Assigned Provider 08/15/19 05/14/23 David Alford DO [address] [place] [address] [email or web address] X Ray Technician Endocrinology 08/15/24 Nilda Oh MD [address] [place] [address] [address] [place] [address] [email or web address] Obstetrics and Gynecology 08/15/24 documented as of this encounter Additional Source Comments The information contained in this document represents components of the legal health record. It is not the complete legal health record.[facility]
--- OUTSIDE RECORDS SUMMARY | 2025-03-04 09:21 | XMS_ITS | Encounter Summary ---
Author Organization [facility] Address [address] [place] [address] Phone Care Team Providers Care Early Years Teacher Name Role Phone David Leazma MD Unavailable Lm Suarez MD Unavailable [phone] Glenis Gloria [facility] Primary Care Provid er David Alford DO Unavailable Nilda Oh MD Unavailable Encounter Details Date Type Department Care Team (Late st Contact Info) Description 03/01/2025 Orders Only [facility] [place] 40 [place] [address] Provider, MD Gautam [address] [place] [address] Social History Tobacco Use Types Packs/Day Years [...] 8:30 AM EST Office Visit [facility] [address] [place] [address] [place] [address] David Alford, 22 [place] [address] 08/16/2025 10:30 AM EDT Office Visit [facility] [address] [place] [address] [place] [address] Argenismemo Glenischrissy Eldridge CNP [address] documented as of this encounter Procedures Procedure Name Priority Date/Time Associated Diagnosis Comments OUTSIDE LAB Routine 03/01/2025 6:55 AM EDT documented in this encounter Results * Outside Lab (03/01/2025 6:55 AM EDT) us Historical Provider LAB BLOOD ORDERABLES Qian l Result documented in this encounter Visit Diagnoses Not on filedocumented in this encounter Additional Health Concerns Assessment Noted Time PHQ-2 Depression Total Score: 0 08/16/19 25 8:55 AM EDT documented as of this encounter Care Teams Early Years Teacher Relationship Specialty Start Date End Date Argenismemo Glenischrissy Eldridge CNP [address] [address] PCP - General Family Medicine 08/31/23 David Lezama MD [address] [place] [address] Ophthalmology 04/17/19 Lm Suarez MD [address] [place] [address], [address] [place] [address] Urology 03/04/20 Davdi Alford DO 22 [place] [address] Elevator Runner Endocrinology 08/15/24 Nilda Oh MD 22 [facility], [address] [address] [email or web address] Obstetrics and Gynecology 08/15/24 documented as of this encounter Additional Source Comments The information contained in this document represents components of the legal health record. It is not the complete legal health record.[facility]
== END 2025-03-04 09:40 | disposition home or self-care (01) ==
PROVIDERS: PCP Registered Nurse; Visit Provider Nurse Practitioner Family
DX: R05.2 Subacute cough (principal)

== ENCOUNTER → 2025-03-04 08:46 | Outpatient (BNVA) | payer MEDICARE, BC, SELFPAY | PROVIDERS: PCP Registered Nurse; Visit Provider Nurse Practitioner Family | DX: R05.2 Subacute cough (principal) | CPT/HCPCS: 99212 ==